=== PATIENT | female | born 1965 | race Caucasian/White ===

== ENCOUNTER → 2016-04-02 | Outpatient (CLI) | payer BC ==
[~2016-04-02] MED LIST: ACET250T2 PO; ACET50CA PO; ASPI81TA85 PO; ATEN50TA2 PO; BENA25CA PO; CYCL10TA3 PO; LEVO100T5 PO; LEVO10VL PO; LEVO75TA3 PO; LEXA1TAB PO; LISI5TAB PO; PANT40TA2 PO
[2016-04-02 13:15] LABS: ALBUMIN 3.3 GM/DL (3.2-5.2); ALKALINE PHOSPHATASE 87 U/L (45-117); ALT/SGPT 34 U/L (12-78); ANION GAP 8 MEQ/L (8-16); AST/SGOT 39 U/L (15-37); BILIRUBIN,TOTAL 0.3 MG/DL (0.2-1.0); BLOOD UREA NITROGEN 16 MG/DL (7-18); CALCIUM LEVEL 8.8 MG/DL (8.5-10.1); CARBON DIOXIDE LEVEL 25 MEQ/L (21-32); CHLORIDE LEVEL 110 MEQ/L (98-107); CHOLESTEROL LEVEL 143 MG/DL (<200); CREATININE FOR GFR 1.09 MG/DL (0.55-1.02); GLOMERULAR FILTRATION RATE 56.8 (>58); GLUCOSE, FASTING 104 MG/DL (70-105); POTASSIUM SERUM 4.2 MEQ/L (3.5-5.1); SODIUM LEVEL 143 MEQ/L (136-145); TRIGLYCERIDES LEVEL 115 MG/DL (<150)
[2016-04-02 13:20] LABS: FERRITIN 7 NG/ML (8-252); FREE T4 0.89 NG/DL (0.76-1.46); PERCENT SATURATION 9.2 % (13.2-37.4); TOTAL IRON BINDING CAPACITY 314 UG/DL (250-450); TOTAL PROTEIN 7.4 GM/DL (6.4-8.2)
[2016-04-02 13:23] LABS: MEAN CORPUSCULAR HGB CONC 31.2 g/dl (32.0-36.5); MEAN CORPUSCULAR VOLUME 83.3 fl (80.0-96.0); RED CELL DISTRIBUTION WIDTH 14.9 % (11.5-14.5); WHITE BLOOD COUNT 7.5 K/mm3 (4.0-10.0)
== END ==
LOC: M WUC 09:13
PROVIDERS: ATTEND Nurse Practitioner Family
DX: E78.5 Hyperlipidemia, unspecified (principal); I10 Essential (primary) hypertension; D53.9 Nutritional anemia, unspecified; E55.9 Vitamin D deficiency, unspecified; E03.9 Hypothyroidism, unspecified

== ENCOUNTER → 2016-06-12 | Outpatient (CLI) | payer BC ==
--- NOTE | 2016-06-14 18:03 | ECGEPIP ---
Stationary ECG Study [facility] Test Date: 2016-06-12 Pat Name: RORO TAVARES Department: Room: - Gender: F Lead Cargo Mover: YAIR : 1965 Requested By: Gen Blanton Order Number: [id number] Reading MD: Junior Chen Measurements Intervals [place] Rate: 83 P: 55 CT: 180 QRS: 9 QRSD: 94 T: 22 QT: 370 QTc: 436 Interpretive Statements SINUS RHYTHM NO PRIOR TRACING IN THE SYSTEM Electronically Signed On 06-14-2016 18:03:03 EDT by Junior Chen
== END ==
LOC: M EKG 12:17
PROVIDERS: ATTEND Orthopaedic Surgery
DX: I10 Essential (primary) hypertension (principal)

== ENCOUNTER → 2016-08-08 | Outpatient (CLI) | payer BC ==
[~2016-08-08] MED LIST changes: +ACET500C4 PO; -ACET50CA PO; +ASPI1TAB PO; +BENA25TA10 PO; +CYCL10TA PO; +IRON65TA PO; +LISI-542 PO
--- NOTE | 2016-08-09 06:55 | REP ---
CT study of the abdomen and pelvis without IV or oral contrast: Renal stone protocol. History: Left-sided flank pain. Comparison study: January 13, 2015. Findings: Preliminary digital forensic manager radiograph shows clips in the right upper quadrant. Bowel gas pattern is unremarkable. The lung bases are clear. Liver and spleen are normal in size, homogeneous in texture. No adrenal lesion is seen on either side. No pancreatic abnormality is noted. There is moderate left-sided hydronephrosis and proximal hydroureter due to the presence of a large proximal ureteral calculus on the left. This measures 14 mm in greatest dimension. There are two smaller calculi in the intrarenal collecting system of the lower pole of the left kidney as well. The largest of these measures 6 mm in size. There is an upper pole intrarenal calculus 5 mm in diameter. On the right, there is no evidence of hydronephrosis but there are four identifiable intrarenal calculi. The largest of the right sided intrarenal calculi measures 10 mm. Normal caliber aorta is seen. A normal appendix is observed. No uterine or ovarian abnormality is seen. No bony destructive lesion is appreciated. Impression: Bilateral intrarenal nephrolithiasis. 14 mm obstructing left proximal ureteral calculus noted at the level of the L3 vertebral body. Moderate left-sided hydronephrosis. Signed by Brennan Gold MD 08/09/2016 07:58 A
== END ==
LOC: M RAD 17:59
PROVIDERS: ATTEND Nurse Practitioner Women's Health
DX: R10.9 Unspecified abdominal pain (principal)

== ENCOUNTER → 2016-08-23 | Outpatient (REF) | payer BC ==
[2016-08-23 11:18] LABS: MICROSCOPIC INDICATED? MAN YES (NO)
[2016-08-23 11:31] LABS: CALCIUM OXALATE CRYSTALS,URINE LARGE AMOUNT /hpf; HYALINE CAST, URINE NONE SEEN /lpf (0-1); RBC, URINE NONE SEEN /hpf (0-3); SQUAMOUS EPITHELIAL CELL URINE SMALL AMOUNT /hpf (SMALL AMT)
[2016-08-23 11:32] LABS: MICROSCOPIC EXAM PERFORMED
[2016-08-23 11:40] LABS: BACTERIA, URINE SMALL AMOUNT
== END ==
LOC: M SMT 09:25
PROVIDERS: ATTEND Nurse Practitioner Women's Health
DX: N13.2 Hydronephrosis with renal and ureteral calculous obstruction (principal); Z01.818 Encounter for other preprocedural examination

== ENCOUNTER → 2016-09-19 | Outpatient (CLI) | payer BC ==
[2016-09-19 17:52] LABS: INR 1.05; MEAN CORPUSCULAR HEMOGLOBIN 25.9 pg (27.0-33.0); MEAN CORPUSCULAR HGB CONC 31.6 g/dl (32.0-36.5); RED CELL DISTRIBUTION WIDTH 16.8 % (11.5-14.5); WHITE BLOOD COUNT 7.1 K/mm3 (4.0-10.0)
[2016-09-19 18:19] LABS: CONTROL LINE HCG INT CTR LINE PRESENT
[2016-09-19 19:34] LABS: ANION GAP 10 MEQ/L (8-16); BLOOD UREA NITROGEN 21 MG/DL (7-18); CALCIUM LEVEL 8.4 MG/DL (8.5-10.1); CARBON DIOXIDE LEVEL 22 MEQ/L (21-32); CHLORIDE LEVEL 111 MEQ/L (98-107); GLOMERULAR FILTRATION RATE 36.5 (>58); GLUCOSE, FASTING 84 MG/DL (70-105); POTASSIUM SERUM 4.3 MEQ/L (3.5-5.1); SODIUM LEVEL 143 MEQ/L (136-145)
== END ==
LOC: M WUC 15:34
PROVIDERS: ATTEND Nurse Practitioner Women's Health
DX: Z01.818 Encounter for other preprocedural examination (principal); N13.2 Hydronephrosis with renal and ureteral calculous obstruction

== ENCOUNTER → 2016-09-20 | Outpatient (REF) | payer BC | LOC: M SMT 16:25 | PROVIDERS: ATTEND Urology | DX: N39.0 Urinary tract infection, site not specified (principal) ==

== ENCOUNTER 2016-09-21 07:42 | Day surgery (SDC) | payer BC ==
[~2016-09-21] VITALS: Ht 170.2 cm; Wt 129.7 kg
[~2016-09-21 07:42] MED LIST changes: -ASPI1TAB PO
[2016-09-21] MEDS ORDERED: LR 1,000 ML IV ONE (08:00)
[2016-09-21] MEDS ORDERED: ceFAZolin SOD 1 GM in D5W MINI-BAG PLUS 50 ML IV ONE (08:00)
[2016-09-21] MEDS ORDERED: CONRAY-60 60% 50ML VIAL (Q9961) As Ordered ONE (08:54)
[2016-09-21] MEDS ORDERED: PROPOFOL 200 MG/20 ML VIAL As Ordered ONE (09:05)
[2016-09-21] MEDS ORDERED: fentaNYL 250 MCG/5 ML INJECTION (J3010) As Ordered ONE (09:05)
[2016-09-21] MEDS ORDERED: LIDOCAINE 2% INJ 100 MG/5 ML SDV (FOR ANES.) As Ordered ONE (09:05)
[2016-09-21] MEDS ORDERED: ROCURONIUM BROMIDE 50 MG/5 ML VIAL/SYRINGE As Ordered ONE (09:05)
[2016-09-21] MEDS ORDERED: MIDAZOLAM INJ 2 MG/2 ML VIAL (J2250) As Ordered ONE (09:06)
[2016-09-21] MEDS ORDERED: SCOPOLAMINE 1.5 MG TRANSDERMAL As Ordered ONE (09:50)
[2016-09-21] MEDS ORDERED: dexameTHASONE 4 MG/ML 1ML VIAL (J1100) As Ordered ONE (10:08)
[2016-09-21] MEDS ORDERED: ONDANSETRON 4MG/2ML VIAL (J2405) As Ordered ONE (10:08)
[2016-09-21] MEDS ORDERED: SUGAMMADEX SODIUM 500 MG/5 ML VIAL (BRIDION) As Ordered ONE (10:17)
[2016-09-21] MEDS ORDERED: LR 1,000 ML IV SCH (11:00)
[2016-09-21] MEDS ORDERED: PERCOCET 5MG/325MG TAB PO PRN ×3 (11:00)
[2016-09-21] MEDS ORDERED: MEPERIDINE INJ 25 MG/ML VIAL (J2175) IV PRN (11:00)
[2016-09-21] MEDS ORDERED: ONDANSETRON 4MG/2ML VIAL (J2405) IV PRN (11:00)
[2016-09-21] MEDS ORDERED: METOCLOPRAMIDE INJ 10MG/2ML VIAL (J2765) IV PRN (11:00)
[2016-09-21] MEDS ORDERED: oxyBUTYnin 5 MG TAB PO PRN (11:00)
[2016-09-21] MEDS ORDERED: fentaNYL 100 MCG/2 ML INJECTION (J3010) IV PRN (11:00)
--- NOTE | 2016-09-21 11:01 | REP ---
C-ARM VIEWS DURING LEFT RETROGRADE PYELOGRAM AND STENT PLACEMENT: Calculus is seen in the left ureter. A wire is passed from the bladder into the left renal pelvis. Contrast is injected showing left hydronephrosis. A left ureteral stent is placed. The proximal end of coiled in the left renal pelvis and the distal end is coiled in the region of the urinary bladder. 15 seconds fluoroscopy time utilized. Signed by Landry Bell MD 09/21/2016 05:07 P
[2016-09-21] MEDS ORDERED: LACTATED RINGER'S 1000 ML IV ONE (12:30)
[2016-09-21 14:05] VITALS: BP 153/83
--- NOTE | 2016-09-22 08:21 | RO ---
DATE OF PROCEDURE: 09/21/2016 PREPROCEDURE DIAGNOSIS: Left kidney and ureteral stones. POSTPROCEDURE DIAGNOSIS: Left kidney and ureteral stones. PROCEDURE: Cystoscopy, left ureteroscopy with laser lithotripsy with basket extraction of stones, left retrograde pyelogram with intraoperative interpretation of images, left ureteral stent placement. SURGEON: Dr. Bill Castillo SOURCING ASSISTANT: None. ANESTHESIA: General. OPERATIVE INDICATIONS: This is a 51-year-old female who was found on recent CAT scan to have an obstructing 1.2 cm left ureteral stone, as well as another 6 mm stone in the left kidney. She was brought to the operating room today for the above listed procedure. DESCRIPTION OF PROCEDURE: The patient was brought to the operating room, where general anesthesia was induced. Prophylactic antibiotics were infused. She was then placed in the dorsal lithotomy position and prepped and draped in the usual sterile fashion. A rigid cystoscope was then inserted into the urethral meatus and advanced into the bladder. Once within the bladder, a wire was advanced up the left collecting system. I then advanced the ureteral access sheath up the left collecting system and the wire was secured to the drape to serve as a safety wire. I then went into the access sheath with a flexible ureteroscope and within the mid ureteral a 1.2 cm stone was seen. Of note, the patient appeared to be starting to form a ureteral stricture at the area where the stone was obstructed. At this point, I utilized a 200 micron laser fiber to fragment the stone in several smaller pieces and removed the majority of the larger stone fragments. I then went into the kidney and found the other stone and that stone was fragmented into smaller pieces as well. All of the larger stone fragments were removed with the basket. Any other stone fragments were broken down into smaller pieces that should be small enough to pass. At this point, a retrograde pyelogram was performed and was notable for severe left hydroureteronephrosis. There was no extravasation. I then withdrew the ureteral access sheath along the ureteroscope and no large stone fragments were seen. Only very tiny stone fragments were seen. At this point, the previously placed wire was used to advance a #7-Tamazight x 22-32 cm JJ ureteral stent up into the left collecting system. The wire was then removed, and there were adequate curls of the stent in the left renal pelvis and in the bladder. The bladder was then emptied of all fluid, and this marked the conclusion of the procedure. The patient was then taken out of the dorsal lithotomy position, awakened from anesthesia, and transported to the recovery room in stable condition. ESTIMATED BLOOD LOSS: 0 mL. COMPLICATIONS: None. SPECIMENS: Kidney stone fragments. PLAN: The patient will followup in the clinic for a postoperative visit. Of note, she has stones in the right kidney that will also warrant treatment. They can likely be treated with extracorporeal shock wave lithotripsy (ESWL). If the patient prefers, we can remove her stent at that time and treat her right sided stones at that time. PARTH
[2016-10-09] MEDS ORDERED: ASPI1TAB PO (15:26)
== END 2016-09-21 14:06 | disposition home or self-care (01) ==
LOC: M SDC 07:42
PROVIDERS: ATTEND Urology
DX: N13.2 Hydronephrosis with renal and ureteral calculous obstruction (principal); E03.9 Hypothyroidism, unspecified; I10 Essential (primary) hypertension; E55.9 Vitamin D deficiency, unspecified; K21.9 Gastro-esophageal reflux disease without esophagitis; D64.9 Anemia, unspecified; M51.36 Other intervertebral disc degeneration, lumbar region; M50.20 Other cervical disc displacement, unspecified cervical region; G93.2 Benign intracranial hypertension; K44.9 Diaphragmatic hernia without obstruction or gangrene; R13.10 Dysphagia, unspecified; Z79.899 Other long term (current) drug therapy; Z79.82 Long term (current) use of aspirin; Z88.5 Allergy status to narcotic agent; Z88.1 Allergy status to other antibiotic agents; Z88.8 Allergy status to other drugs, medicaments and biological substances
CPT/HCPCS: 52356; 74420; 82360; 88300; C1769; C1894; C2617; J0690; J1100; J2250; J2405; J2765; J3010; Q9961

== ENCOUNTER → 2016-09-27 | Outpatient (REF) | payer BC ==
[~2016-09-27] MED LIST changes: +ASPI1TAB PO
== END ==
LOC: M SMT 17:43
PROVIDERS: ATTEND Nurse Practitioner Women's Health
DX: R30.0 Dysuria (principal)

== ENCOUNTER → 2016-10-10 | Outpatient (CLI) | payer BC ==
[2016-10-10 16:51] LABS: CALCIUM LEVEL 8.6 MG/DL (8.5-10.1); CREATININE FOR GFR 1.59 MG/DL (0.55-1.02); GLOMERULAR FILTRATION RATE 36.7 (>58); POTASSIUM SERUM 4.1 MEQ/L (3.5-5.1)
[2016-10-10 17:04] LABS: MEAN CORPUSCULAR HEMOGLOBIN 25.9 pg (27.0-33.0); MEAN CORPUSCULAR HGB CONC 31.5 g/dl (32.0-36.5); MEAN CORPUSCULAR VOLUME 82.1 fl (80.0-96.0); RED CELL DISTRIBUTION WIDTH 16.3 % (11.5-14.5); WHITE BLOOD COUNT 7.6 K/mm3 (4.0-10.0)
== END ==
LOC: M WUC 13:03
PROVIDERS: ATTEND Urology
DX: Z01.818 Encounter for other preprocedural examination (principal); N20.0 Calculus of kidney; N39.0 Urinary tract infection, site not specified

== ENCOUNTER 2016-10-11 06:33 | Day surgery (SDC) | payer BC ==
[~2016-10-11] VITALS: Ht 170.2 cm; Wt 128.4 kg
[2016-10-11] MEDS ORDERED: PROPOFOL 200 MG/20 ML VIAL As Ordered ONE ×2 (07:18→08:14)
[2016-10-11] MEDS ORDERED: MIDAZOLAM INJ 2 MG/2 ML VIAL (J2250) As Ordered ONE (07:18)
[2016-10-11] MEDS ORDERED: LIDOCAINE 2% INJ 100 MG/5 ML SDV (FOR ANES.) As Ordered ONE (07:18)
[2016-10-11] MEDS ORDERED: fentaNYL 100 MCG/2 ML INJECTION (J3010) As Ordered ONE (07:19)
--- NOTE | 2016-10-11 07:19 | REP ---
Clinical: Nephrolithiasis. Comparison: CT dated 08/08/2016. Technique: Single supine view of the abdomen and pelvis. Findings: A left ureteral stent is in satisfactory position. Bilateral intrarenal calculi are identified measuring up to approximately 10 mm in the right kidney and multiple smaller calcifications in the left kidney outlining the lower pole collecting system. No obvious ureteral calcifications are appreciated. The bowel gas pattern is nonspecific. No organomegaly. Skeletal structures demonstrate age-related changes. Impression: Left ureteral stent in satisfactory position. Bilateral intrarenal calculi identified. Signed by Davis Asencio MD 10/11/2016 07:11 A
[2016-10-11 07:32] LABS: CONTROL LINE UCG INT CTR LINE PRESENT
[2016-10-11] MEDS ORDERED: METOCLOPRAMIDE INJ 10MG/2ML VIAL (J2765) As Ordered ONE (07:44)
[2016-10-11] MEDS ORDERED: KETAMINE HCL 200 MG/20 ML VIAL As Ordered ONE (07:44)
[2016-10-11] MEDS ORDERED: ONDANSETRON 4MG/2ML VIAL (J2405) As Ordered ONE (08:17)
[2016-10-11] MEDS ORDERED: PERCOCET 5MG/325MG TAB PO PRN ×2 (09:15)
[2016-10-11 09:45] VITALS: BP 101/57
--- NOTE | 2016-10-11 10:30 | RO ---
DATE OF PROCEDURE: 10/11/2016 PREPROCEDURE DIAGNOSIS: Kidney stones. POSTPROCEDURE DIAGNOSIS: Kidney stones. PROCEDURE: Right extracorporeal shockwave lithotripsy, cystoscopy with left ureteral stent removal. SURGEON: Dr. Bill Castillo GREY TENDER: None ANESTHESIA: Monitored anesthesia care (MAC). OPERATIVE INDICATIONS: This is a 51-year-old female with bilateral nephrolithiasis and recently underwent a left ureteroscopy with laser lithotripsy and left ureteral stent placement. She also has a 9 mm right kidney stone. She was brought to the operating room today for treatment of her right kidney stone as well as removal of her left ureteral stent. DESCRIPTION OF PROCEDURE: The patient was brought to the operating room and MAC anesthesia was administered. Prophylactic antibiotics were infused. She was then placed in the supine position and then prepped and draped in the usual sterile fashion. At this point, cystoscopy was performed and the left ureteral stent was removed. The patient was then positioned for a right sided extracorporeal shockwave lithotripsy. Fluoroscopy was utilized to monitor the stone position and fragmentation throughout the procedure. Shockwaves were delivered ungated. There were no arrhythmias. The stone did appear to fragment well. After 2500 shocks, the procedure was concluded. The patient was then awakened from anesthesia and transported to the recovery room in stable condition. Estimated blood loss 0 mL. Complications: None. Specimens: None. Plan: The patient will followup in the clinic in a few weeks with imaging prior to check for residual stone burden. PARTH
== END 2016-10-11 10:00 | disposition home or self-care (01) ==
LOC: M SDC 06:33 → M RAD 06:33 → M SDC 10:00
PROVIDERS: ATTEND Urology
DX: N20.0 Calculus of kidney (principal); I10 Essential (primary) hypertension; R13.10 Dysphagia, unspecified; K44.9 Diaphragmatic hernia without obstruction or gangrene; M51.26 Other intervertebral disc displacement, lumbar region; M50.20 Other cervical disc displacement, unspecified cervical region; F41.9 Anxiety disorder, unspecified; E55.9 Vitamin D deficiency, unspecified; K21.9 Gastro-esophageal reflux disease without esophagitis; G93.2 Benign intracranial hypertension; E03.9 Hypothyroidism, unspecified; D64.9 Anemia, unspecified; R06.83 Snoring; R51 Headache; Z79.899 Other long term (current) drug therapy; Z79.82 Long term (current) use of aspirin; Z88.8 Allergy status to other drugs, medicaments and biological substances; Z88.5 Allergy status to narcotic agent; Z88.1 Allergy status to other antibiotic agents
CPT/HCPCS: 50590; 52332; 74000; 84703; J2250; J2405; J2765; J3010

== ENCOUNTER → 2017-04-07 | Outpatient (CLI) | payer BC | LOC: M WUC 16:32 | DX: N20.0 Calculus of kidney (principal); M51.9 Unspecified thoracic, thoracolumbar and lumbosacral intervertebral disc disorder | CPT/HCPCS: 72110 ==

== ENCOUNTER → 2017-04-22 | Outpatient (CLI) | payer BC ==
[2017-04-22 12:42] LABS: HEMATOCRIT 37.6 % (36.0-47.0); HEMOGLOBIN 11.4 g/dl (12.0-16.0); MEAN CORPUSCULAR HEMOGLOBIN 24.9 pg (27.0-33.0); MEAN CORPUSCULAR HGB CONC 30.3 g/dl (32.0-36.5); MEAN CORPUSCULAR VOLUME 82.1 fl (80.0-96.0); PLATELET COUNT, AUTOMATED 239 10^3/uL (150-450); RED BLOOD COUNT 4.58 10^6/uL (4.00-5.40); RED CELL DISTRIBUTION WIDTH 16.7 % (11.5-14.5); WHITE BLOOD COUNT 11.1 10^3/uL (4.0-10.0)
[2017-04-22 13:05] LABS: ALBUMIN 3.6 GM/DL (3.2-5.2); ALBUMIN/GLOBULIN RATIO 0.88 (1.00-1.93); ALKALINE PHOSPHATASE 82 U/L (45-117); ALT/SGPT 38 U/L (12-78); ANION GAP 7 MEQ/L (8-16); AST/SGOT 51 U/L (7-37); BILIRUBIN,TOTAL 0.2 MG/DL (0.2-1.0); BLOOD UREA NITROGEN 16 MG/DL (7-18); CALCIUM LEVEL 8.5 MG/DL (8.5-10.1); CARBON DIOXIDE LEVEL 21 MEQ/L (21-32); CHLORIDE LEVEL 111 MEQ/L (98-107); CHOLESTEROL LEVEL 122 MG/DL (<200); CHOLESTEROL RISK RATIO 3.935 (<5); CPK CREATINE PHOSPHOKINASE 93 U/L (26-192); CREATININE FOR GFR 1.36 MG/DL (0.55-1.30); FERRITIN 34 NG/ML (8-252); FREE T4 1.03 NG/DL (0.76-1.46); GLOMERULAR FILTRATION RATE 43.8 (>51); GLUCOSE, FASTING 102 MG/DL (70-100); HDL CHOLESTEROL 31 MG/DL (>40); IMMUNOGLOBULIN G 1990 MG/DL (681-1648); IMMUNOGLOBULIN M 49.1 MG/DL (40-230); IRON (FE) 36 UG/DL (50-170); LDL CHOLESTEROL 72.4 MG/DL (<100); NON-HDL-C 91 MG/DL; PERCENT SATURATION 11.5 % (13.2-45.0); POTASSIUM SERUM 4.2 MEQ/L (3.5-5.1); RHEUMATOID FACTOR QUANT 24.6 IU/ML (0-15.0); SODIUM LEVEL 139 MEQ/L (136-145); TOTAL IRON BINDING CAPACITY 314 UG/DL (250-450); TOTAL PROTEIN 7.7 GM/DL (6.4-8.2); TRIGLYCERIDES LEVEL 93 MG/DL (<150)
[2017-04-24 00:11] LABS: Lyme Disease IgG/IgM Antibodie <0.91 ISR (0.00-0.90); Lyme Disease IgM Ab Quantitati <0.80 index (0.00-0.79)
== END ==
LOC: M WUC 09:54
DX: E03.9 Hypothyroidism, unspecified (principal); I10 Essential (primary) hypertension; M79.1 Myalgia; E78.00 Pure hypercholesterolemia, unspecified
CPT/HCPCS: 82550

== ENCOUNTER → 2017-06-14 | Outpatient (CLI) | payer BC | LOC: M PLARAD 08:15 | DX: M51.26 Other intervertebral disc displacement, lumbar region (principal); M51.36 Other intervertebral disc degeneration, lumbar region | CPT/HCPCS: 72148 ==

== ENCOUNTER → 2017-08-02 | Outpatient (CLI) | payer BC ==
[2017-08-02 13:09] LABS: HEMATOCRIT 40.8 % (36.0-47.0); HEMOGLOBIN 12.6 g/dl (12.0-15.5); MEAN CORPUSCULAR HEMOGLOBIN 26.4 pg (27.0-33.0); MEAN CORPUSCULAR HGB CONC 30.9 g/dl (32.0-36.5); MEAN CORPUSCULAR VOLUME 85.5 fl (80.0-96.0); PLATELET COUNT, AUTOMATED 192 10^3/uL (150-450); RED BLOOD COUNT 4.77 10^6/uL (4.00-5.40); RED CELL DISTRIBUTION WIDTH 16.6 % (11.5-14.5); WHITE BLOOD COUNT 9.7 10^3/uL (4.0-10.0)
[2017-08-02 13:10] LABS: TOTAL 25(OH) VITAMIN D 24.6 NG/ML (30.0-100.0)
[2017-08-02 13:21] LABS: CHOLESTEROL LEVEL 144 MG/DL (<200); CHOLESTEROL RISK RATIO 3.272 (<5); CPK CREATINE PHOSPHOKINASE 127 U/L (26-192); FERRITIN 27 NG/ML (8-252); FREE T4 0.65 NG/DL (0.76-1.46); HDL CHOLESTEROL 44 MG/DL (>40); IRON (FE) 63 UG/DL (50-170); NON-HDL-C 100 MG/DL; PERCENT SATURATION 21.3 % (13.2-45.0); TOTAL IRON BINDING CAPACITY 296 UG/DL (250-450); TRIGLYCERIDES LEVEL 145 MG/DL (<150)
== END ==
LOC: M WUC 08:43
DX: E55.9 Vitamin D deficiency, unspecified (principal); E03.9 Hypothyroidism, unspecified; I10 Essential (primary) hypertension
CPT/HCPCS: 82550

== ENCOUNTER → 2017-08-19 | Outpatient (CLI) | payer BC ==
[2017-08-22 00:09] LABS: Lyme Disease IgG/IgM Antibodie <0.91 ISR (0.00-0.90); Lyme Disease IgM Ab Quantitati <0.80 index (0.00-0.79)
== END ==
LOC: M WUC 13:54
DX: Z11.2 Encounter for screening for other bacterial diseases (principal); W57.XXXA Bitten or stung by nonvenomous insect and other nonvenomous arthropods, initial encounter
CPT/HCPCS: 36415

== ENCOUNTER → 2018-01-09 | Outpatient (CLI) | payer BC | LOC: M WUC 18:01 | DX: M79.644 Pain in right finger(s) (principal) | CPT/HCPCS: 73140 ==

== ENCOUNTER 2018-02-21 16:31 | Emergency (ER) | payer OTHER, BC ==
[~2018-02-21] VITALS: Ht 170.2 cm; Wt 131.8 kg
[~2018-02-21 16:31] MED LIST changes: +PANT40TA3 PO
[2018-02-21] MEDS ORDERED: IBUPROFEN 600 MG TAB PO ONE (17:45)
[2018-02-21] MEDS ORDERED: CYCLOBENZAPRINE 10 MG TAB PO ONE (17:45)
--- NOTE | 2018-02-21 18:07 | REP ---
CT thoracic spine without contrast: History: Trauma. Findings: Thoracic vertebral body heights are preserved. Alignment is normal. No fracture or collapse is seen. Pedicles and posterior elements are intact. There are mild degenerative spondylosis changes in the mid and lower thoracic disc levels. No bony destructive lesion is seen. No posterior rib fracture is observed. Impression: Mild degenerative spondylosis changes. Otherwise normal thoracic spine CT study. Electronically Signed by Brennan Gold MD 02/21/2018 05:59 P
[2018-02-21 18:23] VITALS: BP 132/78
--- NOTE | 2018-02-21 21:01 | REP ---
CT lumbar spine without contrast: History: Trauma. CT findings: Scan quality is inhibited slightly by patient body habitus. Lumbar vertebral body heights are preserved. No fracture or collapse is evident. There are advanced degenerative disc changes L5-S1. Diffuse disc bulging is noted L5-S1. Moderate diffuse disc bulging is visible on L4-5 and there is some significant central canal stenosis suspected L4-5 due to this. This is not traumatic. Bilateral intrarenal nephrolithiasis is noted. The largest of these calculi as in the lower pole on the right measuring 4 mm. Impression: No traumatic bony abnormality. Degenerative disc disease at the L5-S1 and L4-5 with disc space narrowing and central canal stenosis at L4-5. Bilateral intrarenal nephrolithiasis is seen. Electronically Signed by Brennan Gold MD 02/22/2018 08:19 A
== END 2018-02-21 18:23 | disposition home or self-care (01) ==
LOC: M ED 16:31
DX: S39.012A Strain of muscle, fascia and tendon of lower back, initial encounter (principal); V43.62XA Car passenger injured in collision with other type car in traffic accident, initial encounter; Y92.410 Unspecified street and highway as the place of occurrence of the external cause

== ENCOUNTER → 2018-04-19 | Outpatient (REF) | payer OTHER, BC | LOC: M LAB REF 11:39 | PROVIDERS: ATTEND Physician Assistant Medical | DX: J02.9 Acute pharyngitis, unspecified (principal); N39.0 Urinary tract infection, site not specified ==

== ENCOUNTER → 2018-05-12 | Outpatient (REF) | payer BC ==
[2018-05-12 13:33] LABS: APPEARANCE, URINE CLOUDY (CLEAR); BACTERIA, URINE AUTO NEGATIVE (NEGATIVE); BILIRUBIN, URINE AUTO NEGATIVE (NEGATIVE); BLOOD, URINE BLOOD 1+ (NEGATIVE); COLOR, URINE YELLOW (YELLOW); GLUCOSE, URINE (UA) AUTO NEGATIVE (NEGATIVE); KETONE, URINE AUTO NEGATIVE (NEGATIVE); LEUKOCYTE ESTERASE, URINE AUTO 3+ (NEGATIVE); NITRITE, URINE AUTO NEGATIVE (NEGATIVE); PROTEIN, URINE AUTO 1+ mg/dL (NEGATIVE); RBC, URINE AUTO 9 /HPF (0-3); SPECIFIC GRAVITY URINE AUTO 1.011 (1.002-1.035); SQUAMOUS EPITHELIAL CELL UR AU 0 /HPF (0-6); UROBILINOGEN, URINE AUTO 0.2 mg/dL (0.0-2.0); WBC, URINE AUTO TNTC /HPF (0-3)
== END ==
LOC: M SMT 12:43
PROVIDERS: ATTEND Nurse Practitioner Women's Health
DX: R10.9 Unspecified abdominal pain (principal)

== ENCOUNTER → 2018-05-23 | Outpatient (CLI) | payer BC ==
[~2018-05-23] MED LIST changes: -ASPI1TAB PO; +ASPI81TA26 PO; +LEVO100I PO; -LEVO10VL PO
--- NOTE | 2018-05-23 13:37 | REP ---
CT of the abdomen pelvis without IV or bowel contrast: Studies performed for right flank pain and history of renal calculi. Comparison is the CT of the abdomen pelvis dated 08/08/2016. There are multiple nonobstructive renal calculi bilaterally. This is similar to the comparison study. There is no hydronephrosis. However, there is a calcification posterolateral to the bladder on the right and a calcification posterolateral to the bladder on the left in the proximal locations of the distal ureters, not present previously, compatible with new distal bilateral ureteral calculi. There are nonobstructive. In addition, there is a calcification in the approximate location of the distal left ureter on image 127 in the upper pelvis. This also appears to be nonobstructive. No other suspected ureteral calculi are identified. There is no perinephric stranding. There appears to be mild diffuse left renal cortical atrophy as a change from the comparison study. There is no right renal cortical atrophy. Consider CT urogram with IV contrast for further evaluation of the ureters. The visualized lung khan are unremarkable. The unenhanced liver is unremarkable. There are surgical clips in the gallbladder fossa. The pancreas, spleen, adrenals, abdominal aorta, bowel and mesentery are unremarkable. Pelvis: There are calculi in the proximal appendix has a interval change. The mid and distal appendix are distended with air measuring up to 9.6 mm. There is no periappendiceal inflammation or abscess. There is no ascites or adenopathy. The uterus and adnexa are unremarkable. There are suspected ureteral calculi as previously discussed. Impression: There are suspected ureteral calculi bilaterally as described. There is no hydronephrosis, suggesting these calculi are nonobstructive. Consider CT urogram with IV contrast to better evaluate. There are multiple nonobstructive bilateral renal calculi. Mild left renal cortical atrophy as a change from the prior study. Calcifications at the base of the appendix. The mid and distal appendix are mildly distended and air-filled. There is no periappendiceal inflammation or abscess. Electronically Signed by Landry Jordan MD 05/23/2018 01:28 P
== END ==
LOC: M RAD 11:25
PROVIDERS: ATTEND Nurse Practitioner Women's Health
DX: R10.9 Unspecified abdominal pain (principal)

== ENCOUNTER → 2018-05-30 | Outpatient (REF) | payer BC ==
[~2018-05-30] MED LIST changes: +IBUP-1022 PO
== END ==
LOC: M SMT 16:45
PROVIDERS: ATTEND Nurse Practitioner Women's Health
DX: N39.0 Urinary tract infection, site not specified (principal)

== ENCOUNTER 2018-05-31 14:08 | Emergency (ER) | payer BC ==
[~2018-05-31] VITALS: Ht 170.2 cm; Wt 131.8 kg
[2018-05-31 14:08] VITALS: BP 159/99
[~2018-05-31 14:08] MED LIST changes: -IBUP-1022 PO
[2018-05-31] MEDS ORDERED: TETRACAINE 0.5% OPHTH SOLN 4ML As Ordered ONE (14:28)
[2018-05-31] MEDS ORDERED: FLUORESCEIN OPHTH 1 MG STRIP As Ordered ONE (14:28)
[2018-05-31] MEDS ORDERED: FLUORESCEIN OPHTH 1 MG STRIP XX ONE (14:30)
[2018-05-31] MEDS ORDERED: TETRACAINE 0.5% OPHTH SOLN 4ML XX ONE (14:30)
[2018-05-31] MEDS ORDERED: IBUP-1022 PO (14:40)
[2018-05-31] MEDS ORDERED: IBUPROFEN 600 MG TAB PO ONE (14:45)
== END 2018-05-31 15:07 | disposition home or self-care (01) ==
LOC: M ED 14:08
DX: T26.12XA Burn of cornea and conjunctival sac, left eye, initial encounter (principal); X19.XXXA Contact with other heat and hot substances, initial encounter; Y92.9 Unspecified place or not applicable; Z88.5 Allergy status to narcotic agent; Z88.8 Allergy status to other drugs, medicaments and biological substances; Z79.82 Long term (current) use of aspirin; Z79.899 Other long term (current) drug therapy

== ENCOUNTER → 2018-06-16 | Outpatient (REF) | payer BC ==
[~2018-06-16] MED LIST changes: +IBUP-1022 PO
== END ==
LOC: M SMT 13:28
PROVIDERS: ATTEND Nurse Practitioner Women's Health
DX: N39.0 Urinary tract infection, site not specified (principal)

== ENCOUNTER → 2018-07-04 | Outpatient (CLI) | payer BC ==
[~2018-07-04] MED LIST changes: +LISI10TA4 PO; +MAGN250T7 PO; +SULF1TAB30 PO; +VITATAB73 PO
[2018-07-04 21:04] LABS: BLOOD UREA NITROGEN 20 MG/DL (7-18); CALCIUM LEVEL 8.5 MG/DL (8.5-10.1); CARBON DIOXIDE LEVEL 20 MEQ/L (21-32); CHLORIDE LEVEL 114 MEQ/L (98-107); GLOMERULAR FILTRATION RATE 42.2 (>51); GLUCOSE, FASTING 112 MG/DL (70-100); HEMATOCRIT 38.3 % (36.0-47.0); HEMOGLOBIN 11.8 g/dl (12.0-15.5); INR 0.98; MEAN CORPUSCULAR HEMOGLOBIN 27.1 pg (27.0-33.0); MEAN CORPUSCULAR HGB CONC 30.8 g/dl (32.0-36.5); MEAN CORPUSCULAR VOLUME 87.8 fl (80.0-96.0); PLATELET COUNT, AUTOMATED 260 10^3/uL (150-450); POTASSIUM SERUM 4.5 MEQ/L (3.5-5.1); PROTHROMBIN TIME 13.1 SECONDS (12.1-14.4); RED BLOOD COUNT 4.36 10^6/uL (4.00-5.40); SODIUM LEVEL 141 MEQ/L (136-145); WHITE BLOOD COUNT 8.7 10^3/uL (4.0-10.0)
[2018-07-04 21:05] LABS: PARTIAL THROMBOPLASTIN TIME 32.1 SECONDS (25.4-37.6)
[2018-07-04 21:09] LABS: HCG, SERUM QUALITATIVE NEGATIVE (NEGATIVE)
== END ==
LOC: M WUC 16:33
PROVIDERS: ATTEND Nurse Practitioner Women's Health
DX: Z01.818 Encounter for other preprocedural examination (principal); N20.0 Calculus of kidney; N39.0 Urinary tract infection, site not specified

== ENCOUNTER → 2018-07-09 | Outpatient (REF) | payer BC ==
[2018-07-09 14:41] LABS: APPEARANCE, URINE HAZY (CLEAR); BACTERIA, URINE AUTO NEGATIVE (NEGATIVE); BILIRUBIN, URINE AUTO NEGATIVE (NEGATIVE); BLOOD, URINE BLOOD NEGATIVE (NEGATIVE); COLOR, URINE YELLOW (YELLOW); GLUCOSE, URINE (UA) AUTO NEGATIVE (NEGATIVE); KETONE, URINE AUTO NEGATIVE (NEGATIVE); LEUKOCYTE ESTERASE, URINE AUTO TRACE (NEGATIVE); NITRITE, URINE AUTO NEGATIVE (NEGATIVE); PROTEIN, URINE AUTO NEGATIVE (NEGATIVE); RBC, URINE AUTO 2 /HPF (0-3); SPECIFIC GRAVITY URINE AUTO 1.013 (1.002-1.035); SQUAMOUS EPITHELIAL CELL UR AU 1 /HPF (0-6); UROBILINOGEN, URINE AUTO 0.2 mg/dL (0.0-2.0); WBC, URINE AUTO 10 /HPF (0-3)
== END ==
LOC: M SMT 13:32
PROVIDERS: ATTEND Urology
DX: N39.0 Urinary tract infection, site not specified (principal)

== ENCOUNTER 2018-07-16 09:52 | Day surgery (SDC) | payer BC ==
[~2018-07-16] VITALS: Ht 170.2 cm; Wt 135.6 kg
[~2018-07-16 09:52] MED LIST changes: +LR 1,000 ML IV ONE; +ceFAZolin SOD 1 GM in D5W MINI-BAG PLUS 50 ML IV ONE
[2018-07-16] MEDS ORDERED: LIDOCAINE 2% INJ 100 MG/5 ML SDV (FOR ANES.) As Ordered ONE (10:50)
[2018-07-16] MEDS ORDERED: PROPOFOL 200 MG/20 ML VIAL As Ordered ONE (10:50)
[2018-07-16] MEDS ORDERED: MIDAZOLAM INJ 2 MG/2 ML VIAL (J2250) As Ordered ONE (10:51)
[2018-07-16] MEDS ORDERED: fentaNYL 100 MCG/2 ML INJECTION (J3010) As Ordered ONE (10:51)
[2018-07-16] MEDS ORDERED: SCOPOLAMINE 1MG TRANSDERMAL PATCH As Ordered ONE (11:38)
[2018-07-16] MEDS ORDERED: SCOPOLAMINE 1MG TRANSDERMAL PATCH TOP ONE (11:45)
[2018-07-16] MEDS ORDERED: CONRAY-60 60% 50ML VIAL (Q9961) As Ordered ONE (12:17)
[2018-07-16] MEDS ORDERED: ROCURONIUM BROMIDE 50 MG/5 ML VIAL As Ordered ONE (13:17)
[2018-07-16] MEDS ORDERED: ONDANSETRON 4MG/2ML VIAL (J2405) As Ordered ONE (13:26)
[2018-07-16] MEDS ORDERED: diphenhydrAMINE INJ 50MG/ML VIAL (J1200) As Ordered ONE (13:26)
[2018-07-16] MEDS ORDERED: dexameTHASONE 4 MG/ML 1ML VIAL (J1100) As Ordered ONE (13:26)
[2018-07-16] MEDS ORDERED: SUGAMMADEX SODIUM 500 MG/5 ML VIAL (BRIDION) As Ordered ONE (13:27)
[2018-07-16] MEDS ORDERED: METOCLOPRAMIDE INJ 10MG/2ML VIAL (J2765) As Ordered ONE (13:27)
[2018-07-16] MEDS ORDERED: KETOROLAC 60 MG/2 ML VIAL (J1885) As Ordered ONE (13:27)
--- NOTE | 2018-07-16 14:32 | REP ---
Retrograde pyelogram History: Stent placement Four portable radiographs were obtained with a C-arm. A small amount of contrast material is present in the renal collecting systems. The patient is status post bilateral ureteral stent placement. Fluoroscopic time 38 seconds. Impression: Retrograde pyelogram as described above. Electronically Signed by Navin Andre MD 07/16/2018 02:23 P
[2018-07-16] MEDS ORDERED: fentaNYL 100 MCG/2 ML INJECTION (J3010) IV PRN (15:00)
[2018-07-16] MEDS ORDERED: oxyCODONE 5MG TAB PO PRN (15:00)
[2018-07-16] MEDS ORDERED: METOCLOPRAMIDE INJ 10MG/2ML VIAL (J2765) IV PRN (15:00)
[2018-07-16] MEDS ORDERED: traMADol 50 MG TAB PO PRN (15:00)
[2018-07-16] MEDS ORDERED: LR 1,000 ML IV SCH (15:00)
[2018-07-16] MEDS: PROMETHAZINE INJ 25 MG/ML VIAL (J2550) IV PRN ×2 (15:02→15:13)
[2018-07-16 16:37] VITALS: BP 132/91
--- NOTE | 2018-07-16 17:02 | RO ---
DATE OF PROCEDURE: 07/16/2018 PREOPERATIVE DIAGNOSIS: Kidney stones. POSTOPERATIVE DIAGNOSIS: Kidney stones, left ureteral masses. PROCEDURE: Cystoscopy, bilateral ureteroscopy with basket extraction of stones and left ureteral biopsies, bilateral retrograde pyelogram with intraoperative interpretation of images, bilateral ureteral stent placement. SURGEON: Dr. Bill Castillo. RN CLINICAL REVIEW: None. ANESTHESIA: General. OPERATIVE INDICATIONS: This is a 53-year-old female who on recent CAT scan was found to have bilateral kidney stones as well as ureteral stones. She was brought to the operating room today for the above listed procedures. DESCRIPTION OF PROCEDURE: Patient was brought to the operating room where general anesthesia was induced. Prophylactic antibiotics were infused. She was then placed in the dorsal lithotomy position and prepped and draped in the usual sterile fashion. Rigid cystoscope was inserted into the urethral meatus and advanced to the bladder. The guidewire was advanced up the right collecting system. I then went up the right collecting system with a short semi-rigid ureteroscope and within the distal ureter approximately 5-6 mm stone was seen. The stone was removed with the basket. I then examined the more proximal ureter with the ureteroscope and no additional stones were seen. I then removed the short semi-rigid ureteroscope and advanced the ureteral access sheath up the right collecting system. I went up the access sheath with a flexible ureteroscope and examined the kidney thoroughly. There were several stones throughout the kidney measuring up to 5 mm in size. All of these stones were removed in a basket. Once I was satisfied all the stones had been removed a retrograde pyelogram was performed and it was notable for moderate right hydronephrosis and no extravasation. I then withdrew the flexible ureteroscope along with the access sheath and no stones were seen in the proximal or mid ureter. I then utilized the wire to advance the 6-Mongolian x 22-32 cm JJ ureteral stent up to the right collecting system. The wire was removed and there are adequate coils of the stent in the right renal pelvis and in the bladder. I then advanced the wire up the left collecting system and then went up with the short semi-rigid ureteroscope. No stones were seen in the left mid to distal ureter, indicating the left ureteral stones had passed. I then advanced a ureteral access sheath over the wire and went up the access sheath with a flexible ureteroscope. Of note in the proximal ureter the patient had several polypoid looking lesions. Then biopsies of the these were obtained and sent for biopsy of left ureteral masses. Once that was done I then examined the left kidney thoroughly and there were several stones seen throughout the left kidney. All of the stones were grasped with a basket and withdrawn. The larger stones measured up to about 5 mm in size. Once satisfied that all the stones were removed a retrograde pyelogram was performed notable for moderate left hydronephrosis and no extravasation. I then withdrew the ureteroscope along with the access sheath and no additional stones were seen within the ureter. Of note no additional lesions were seen other than the ones in the proximal ureter. At this point I utilized the wire to advance a 6-Mongolian x 22-32 cm JJ ureteral stent up to the left collecting system and then the wire was removed. There were adequate coils of the stent in the left renal pelvis and the bladder. The bladder was then emptied of all fluids and this marked the conclusion of the procedure. The patient was then taken out of dorsal lithotomy position, awakened from anesthesia and transferred to the recovery room in stable condition. ESTIMATED BLOOD LOSS: 5 mL. COMPLICATIONS: None. SPECIMENS: Kidney stone fragments, biopsy of the left ureteral masses. PLAN: The patient will followup in the clinic in a week or two for stent removal. We will also discuss the results of the pathology of the left ureteral biopsies. PARTH
== END 2018-07-16 16:48 | disposition home or self-care (01) ==
LOC: M SDC 09:52
PROVIDERS: ATTEND Urology
DX: N20.0 Calculus of kidney (principal); I10 Essential (primary) hypertension; E03.9 Hypothyroidism, unspecified; K44.9 Diaphragmatic hernia without obstruction or gangrene; K21.9 Gastro-esophageal reflux disease without esophagitis; Z88.8 Allergy status to other drugs, medicaments and biological substances; Z79.899 Other long term (current) drug therapy; D64.9 Anemia, unspecified
CPT/HCPCS: 52332; 52352; 74420; 82360; 88300; 88305; C1769; C1894; C2625; J0690; J1100; J1200; J1885; J2250; J2405; J2765; J3010; Q9961

== ENCOUNTER → 2019-01-20 | Outpatient (CLI) | payer BC ==
[~2019-01-20] MED LIST changes: -LR 1,000 ML IV ONE; -ceFAZolin SOD 1 GM in D5W MINI-BAG PLUS 50 ML IV ONE
--- NOTE | 2019-01-20 12:26 | REPPI ---
KUB: Two views. HISTORY: Kidney stone. Comparison CT study May 23, 2018. FINDINGS: There are surgical clips in right upper quadrant of the abdomen. Bowel gas pattern is normal. There are two faint calcific opacities projecting over the lower pole left kidney consistent with intrarenal nephrolithiasis. No right-sided upper tract calculus is appreciated. No lower tract calculus is seen. IMPRESSION: Two calcific densities projecting at the lower pole of the left kidney 3-4 mm in greatest diameter. Electronically Signed by Brennan Gold MD 01/20/2019 05:17 P
== END ==
LOC: M PLAIMG 08:41
PROVIDERS: ATTEND Nurse Practitioner Women's Health
DX: N20.0 Calculus of kidney (principal)

== ENCOUNTER → 2020-02-08 | Outpatient (REF) | payer BC ==
[~2020-02-08] MED LIST changes: +CYCL-707 PO; -CYCL10TA PO; +PANT40TA29 PO; -PANT40TA3 PO
[2020-02-08 17:49] LABS: APPEARANCE, URINE HAZY (CLEAR); BACTERIA, URINE AUTO 1+ (NEGATIVE); BILIRUBIN, URINE AUTO NEGATIVE (NEGATIVE); BLOOD, URINE BLOOD 2+ (NEGATIVE); COLOR, URINE YELLOW (YELLOW); GLUCOSE, URINE (UA) AUTO NEGATIVE (NEGATIVE); KETONE, URINE AUTO NEGATIVE (NEGATIVE); LEUKOCYTE ESTERASE, URINE AUTO 2+ (NEGATIVE); MUCUS, URINE SMALL (NEGATIVE); NITRITE, URINE AUTO NEGATIVE (NEGATIVE); PROTEIN, URINE AUTO 1+ mg/dL (NEGATIVE); RBC, URINE AUTO 2 /HPF (0-3); SQUAMOUS EPITHELIAL CELL UR AU 5 /HPF (0-6); WBC, URINE AUTO 44 /HPF (0-3)
== END ==
LOC: M SMT 16:45
PROVIDERS: ATTEND Nurse Practitioner Women's Health
DX: Z87.442 Personal history of urinary calculi (principal)

== ENCOUNTER → 2020-02-16 | Outpatient (CLI) | payer BC ==
--- NOTE | 2020-02-16 09:31 | REP ---
INDICATION: H/O KIDNEY STONES W/ NEW ONSET FLANK PAIN COMPARISON: None TECHNIQUE: Axial noncontrast images from the lung bases to the pubic symphysis with coronal and sagittal reformations. This CT examination was performed using the following dose reduction techniques: Automated exposure control, adjustment of mA and/or kv according to the patient's size, and use of iterative reconstruction technique. FINDINGS: Left kidney demonstrates moderate acute obstructive uropathy including perinephric stranding and grade 3 hydroureteronephrosis with a 7 mm obstructing calculus in the mid left ureter (images 96-100) along with nonobstructing intrarenal calculi measuring between 2 and 6 mm. Right kidney includes nonobstructing calculi up to 4.5 mm. Liver, spleen, pancreas, and bilateral adrenal glands are normal. Evidence for prior cholecystectomy. The enteric system is without obstruction or acute inflammatory process. Normal terminal ileum and appendix are identified in the right lower quadrant. Few scattered sigmoid diverticula noted without acute diverticulitis. Pelvis demonstrates normal bladder and age-appropriate uterus/adnexa. No pelvic fluid or ascites. No free air. Left para-aortic adenopathy at the level of the kidney likely reactive and related to the above-mentioned obstructive uropathy. Osseous structures are intact and without acute process. Lung bases are clear. IMPRESSION: Moderate acute left-sided obstructive uropathy with a 7 mm obstructing calculus in the mid left ureter. Bilateral nonobstructing renal calculi noted. <Electronically signed by Davis Asencio > 02/16/20 [id number]
== END ==
LOC: M RAD 08:41
PROVIDERS: ATTEND Nurse Practitioner Women's Health
DX: N20.2 Calculus of kidney with calculus of ureter (principal); Z87.442 Personal history of urinary calculi

== ENCOUNTER → 2020-03-25 | Outpatient (CLI) | payer BC ==
[~2020-03-25] MED LIST changes: -LISI-542 PO; +LISI-898 PO; +LISI10TA22 PO; -LISI10TA4 PO
--- NOTE | 2020-03-25 16:08 | REP ---
INDICATION: PRE OP. COMPARISON: Comparison chest x-ray June 28, 2010. Comparison CT study February 21, 2018. TECHNIQUE: Two views.. FINDINGS: There are surgical clips in right upper quadrant the abdomen. 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 Cardiomediastinal silhouette is unremarkable otherwise. Heart size is normal. Pleural angles are sharp. Lung khan are clear. No bony abnormality is appreciated. It IMPRESSION: No active disease.. <Electronically signed by Rya Gold > 03/25/20 [id number]
== END ==
LOC: M WUC 15:34
PROVIDERS: ATTEND Physician Assistant Medical
DX: Z01.818 Encounter for other preprocedural examination (principal)

== ENCOUNTER → 2020-04-01 | Outpatient (CLI) | payer BC ==
[~2020-04-01] MED LIST changes: +ACET50CA PO; +MONT10TA10 PO; +SYNT175T2 PO; +VITA50005 PO
[2020-04-01 19:10] LABS: BASO # 0.1 10^3/uL (0.0-0.2); BASO % 0.6 % (0.0-1.0); EOS % 0.1 % (0.0-3.0); HEMATOCRIT 39.3 % (36.0-47.0); LYMPH # 1.9 10^3/uL (1.5-5.0); LYMPH % 22.8 % (24.0-44.0); MEAN CORPUSCULAR HEMOGLOBIN 26.2 pg (27.0-33.0); MEAN CORPUSCULAR HGB CONC 30.5 g/dl (32.0-36.5); MEAN CORPUSCULAR VOLUME 85.8 fl (80.0-96.0); MONO # 0.6 10^3/uL (0.0-0.8); MONO % 7.3 % (2.0-8.0); NEUTROPHILS # 5.6 10^3/uL (1.5-8.5); NEUTROPHILS % 67.9 % (36.0-66.0); PLATELET COUNT, AUTOMATED 202 10^3/uL (150-450); RED BLOOD COUNT 4.58 10^6/uL (4.00-5.40); WHITE BLOOD COUNT 8.3 10^3/uL (4.0-10.0)
[2020-04-01 19:17] LABS: APPEARANCE, URINE CLEAR (CLEAR); BACTERIA, URINE AUTO NEGATIVE (NEGATIVE); BILIRUBIN, URINE AUTO NEGATIVE (NEGATIVE); BLOOD, URINE BLOOD 3+ (NEGATIVE); COLOR, URINE YELLOW (YELLOW); GLUCOSE, URINE (UA) AUTO NEGATIVE (NEGATIVE); KETONE, URINE AUTO NEGATIVE (NEGATIVE); LEUKOCYTE ESTERASE, URINE AUTO NEGATIVE (NEGATIVE); NITRITE, URINE AUTO NEGATIVE (NEGATIVE); PROTEIN, URINE AUTO 1+ mg/dL (NEGATIVE); RBC, URINE AUTO TNTC /HPF (0-3); SPECIFIC GRAVITY URINE AUTO 1.017 (1.002-1.035); SQUAMOUS EPITHELIAL CELL UR AU 1 /HPF (0-6); UROBILINOGEN, URINE AUTO 0.2 mg/dL (0.0-2.0); WBC, URINE AUTO 2 /HPF (0-3)
[2020-04-01 19:35] LABS: CREATININE FOR GFR 1.43 MG/DL (0.55-1.30); GLOMERULAR FILTRATION RATE 40.9 (>51)
== END ==
LOC: M WUC 15:47
PROVIDERS: ATTEND Physician Assistant Medical
DX: Z01.812 Encounter for preprocedural laboratory examination (principal)

== ENCOUNTER → 2020-04-02 | Outpatient (CLI) | payer BC | LOC: M LABSMTC 09:07 | PROVIDERS: ATTEND Anesthesiology | DX: Z01.812 Encounter for preprocedural laboratory examination (principal); Z20.822 Contact with and (suspected) exposure to COVID-19 ==

== ENCOUNTER 2020-04-07 10:25 | Day surgery (SDC) | payer BC ==
[~2020-04-07] VITALS: Ht 170.2 cm; Wt 133.7 kg
[~2020-04-07 10:25] MED LIST changes: +CONRAY-60 60% 50ML VIAL (Q9961) As Ordered ONE; +LR 1,000 ML IV ONE; +ceFAZolin SOD 1 GM in D5W MINI-BAG PLUS 50 ML IV ONE; +ceFAZolin SOD 2 GM in IV 1 EA IV ONE
--- OUTSIDE RECORDS SUMMARY | 2020-04-07 10:30 | CCD | Continuity of Care Document ---
Author Author Socorro HUDSON Organization Unknown Address [address] [address] [place] [address] Phone [phone] Care Team Providers Care Bonding Machine Setter Name Role Phone ROEL HUDSON AUTM [phone] Social History Type Date Description Comments Sex Unknown Allergies, Adverse Reactions, Alerts Active Allergies Reaction Severity Comments Date Morphine 03/02/2020 Meloxicam 03/02/2020 Medications Active Medications SIG Qnty Indications Ordering Provide r Date Hydrocodone-Acetaminophen 5-325mg Tablets Take One Tablet By Mouth Every 6 Hours Maximum Daily Dose Four Tablets Unknown Tamsulosin HCL 0.4mg Capsules Unknown Vitamin D (Ergocalciferol) 1.25mg (53469 Ut) Capsules Take 1 Capsule By Mouth Once A Week Unkno wn Pantoprazole Sodium 40mg Tablets D R Take One Tablet By Mouth Every Day Unknown Montelukast Sodium 10mg Tablets Take One Tablet By Mouth Every Day Unknown Levothyroxine Sodium 150mcg Tablet s Take One Tablet By Mouth Every Day Unknown Escitalopram Oxalate 10mg Tablets Take One Tablet By Mouth Every Day Unknown Cyclobenzaprine HCL 10mg Tablets Take One Tablet By Mouth Twice A Day as Needed Unknown Cetirizine HCL 10mg Tablets Take One Tablet By Mouth Every Day Unknown Atenolol 100mg Tablets Take One Half Tablet By Mouth Every Day Unknown Ibuprofen 800mg Tablets Aayush Masters MD Levothyroxine Sodium 175mcg Tablet s Take One Tablet By Mouth Every Day Unknown Levothyroxine Sodium 125mcg Tablet s Take One Tablet By Mouth Every Day Unknown Nystatin [id number]/GM Ointment Apply A Thin Layer To Rash On Left Forearm Two Times A Day For 14 Days Unknown Encounters Type Date Location Provider Dx Diagnosis Office Visit 03/14/2020 11:45a [facility] GIOVANNA Klein J01.10 Acute frontal sinusitis, uns pecified E03.9 Hypothyroidism, unspecified E55.9 Vitamin D deficiency, unspec ified Office Visit 12/14/2019 11:15a [facility] GIOVANNA Kelin I10 Essential (primary) hyperten corina E78.5 Hyperlipidemia, unspecified E03.9 Hypothyroidism, unspecified Assessments Date Code Description Provider 03/14/2020 J01.10 Acute frontal sinusitis, unspeci fied GIOVANNA Adkins 03/14/2020 E03.9 Hypothyroidism, unspecified GIOVANNA Keith 03/14/2020 E55.9 Vitamin D deficiency, unspecifie d GIOVANNA Adkins 12/14/2019 I10 Essential (primary) hypertension GIOVANNA Adkins 12/14/2019 E78.5 Hyperlipidemia, unspecified GIOVANNA Keith 12/14/2019 E03.9 Hypothyroidism, unspecified GIOVANNA Keith Plan of Treatment Future Appointment(s):* 03/21/2020 10:00 am - GIOVANNA Adkins at [facility] Referrals Refer to Reason for Referral Status Appt Date Olga Rodrigues DR. PATIENT WITH TN CHOLESTEROL AND THYROID DISEASE, HAS RECURRENT UPPER CHEST PAIN FOR SEVERAL YEARS. PAIN IS ASSOCIATED WITH ACTIVITY. PLEASE EVAL AND TREAT. [facility] [id number] [facility] [address] [place], [place] [id number] [phone]
--- OUTSIDE RECORDS SUMMARY | 2020-04-07 10:30 | CCD | Continuity of Care Document ---
Author Author Socorro HUDSON Organization Unknown Address [address] [address] [place] [address] Phone [phone] Care Team Providers Care Pigment Pusher Name Role Phone ROEL UHDSON AUTM [phone] Social History Type Date Description Comments Sex Unknown Allergies, Adverse Reactions, Alerts Active Allergies Reaction Severity Comments Date Morphine 03/02/2020 Meloxicam 03/02/2020 Medications Active Medications SIG Qnty Indications Ordering Provide r Date Hydrocodone-Acetaminophen 5-325mg Tablets Take One Tablet By Mouth Every 6 Hours Maximum Daily Dose Four Tablets Unknown Tamsulosin HCL 0.4mg Capsules Unknown Vitamin D (Ergocalciferol) 1.25mg (77293 Ut) Capsules Take 1 Capsule By Mouth [...] Tablet By Mouth Every Day Unknown Nystatin 811468Nomz/GM Ointment Apply A Thin Layer To Rash On Left Forearm Two Times A Day For 14 Days Unknown Results Test Acquired Date Facility Test Result H/L Range Note CBC With Differential 04/01/[address] [address] [phone] White Blood Count 8.3 10 Normal 4.0-10.0 Red Blood Count 4.58 10 Normal 4.00-5.40 Hemoglobin 12.0 g/dL Normal 12.0-15.5 Hematocrit 39.3 % Normal 36.0-47.0 Mean Corpuscular Volume 85.8 fl Normal 80.0-96.0 Mean Corpuscular Hemoglobin 26.2 pg Low 27.0-33.0 Mean Corpuscular HGB Conc 30.5 g/dL Low 32.0-36.5 Red Cell Distribution Width 17.9 % High 11.5-14.5 Platelet Count, Automated 202 10 Normal 150-450 Neutrophils % 67.9 % High 36.0-66.0 Lymph % 22.8 % Low 24.0-44.0 Adams % 7.3 % Normal 2.0-8.0 Eos % 0.1 % Normal 0.0-3.0 Baso % 0.6 % Normal 0.0-1.0 Immature Granulocyte % 1.3 % Normal 0-3.0 Nucleated Red Blood Cell % 0.0 % Normal 0-0 Neutrophils # 5.6 10 Normal 1.5-8.5 Lymph # 1.9 10 Normal 1.5-5.0 Adams # 0.6 10 Normal 0.0-0.8 Eos # 0.0 10 Normal 0.0-0.5 Baso # 0.1 10 Normal 0.0-0.2 Ua Routine 04/01/[address] [address] [phone] Appearance, Urine CLEAR Normal Clear Color, Urine YELLOW Normal Yellow PH,Urine 7.0 units Normal 5.0-9.0 Specific Gardner Urine Auto 1.017 Normal 1.002-1.035 Protein, Urine Auto 1+ mg/dL High Negative Glucose, Urine (Ua) Auto NEGATIVE mg/dL Normal Negative Ketone, Urine Auto NEGATIVE mg/dL Normal Negative Urobilinogen, Urine Auto 0.2 mg/dL Normal 0.0-2.0 Bilirubin, Urine Auto NEGATIVE Normal Negative Nitrite, Urine Auto NEGATIVE Normal Negative Leukocyte Esterase, Urine Auto NEGATIVE Normal Negative Blood, Urine Blood 3+ High Negative WBC, Urine Auto 2 /HPF Normal 0-3 RBC, Urine Auto TNTC /HPF High 0-3 Bacteria, Urine Auto NEGATIVE Normal Negative Squamous Epithelial Cell Ur AU 1 /HPF Normal 0-6 Hyaline Cast, Urine Auto 0 /LPF Normal 0-1 Basic Metabolic Profile 04/01/2020 [facility] [address] [place], [place] [address] [phone] Glucose, Fasting 126 mg/dL High 70-100 Blood Urea Nitrogen 14 mg/dL Normal 7-18 Creatinine For GFR 1.43 mg/dL High 0.55-1.30 Glomerular Filtration Rate 40.9 Low >51 1 Sodium Level 142 mEq/L Normal 136-145 Potassium Serum 4.0 mEq/L Normal 3.5-5.1 Chloride Level 112 mEq/L High 98-107 Carbon Dioxide Level 24 mEq/L Normal 21-32 Anion Gap 6 mEq/L Low 8-16 Calcium Level 8.0 mg/dL Low 8.5-10.1 Laboratory test finding 04/01/2020 [facility] [address] [place], [place] [address] [phone] Urine Culture FULL REPORT IN L <SEE NOTE> Normal 2 1 Units are mL/min/1.73 m2 Chronic Kidney Disease Staging per NKF: Stage I & II GFR >=60 Normal to Mildly Decreased Stage III GFR 30-59 Moderately Decreased Stage IV GFR 15-29 Severely Decreased Stage V GFR <15 Very Little GFR Left ESRD GFR <15 on RESIDENT ENGINEER 2 FULL REPORT IN LAB NOTES (eC W and Medent). NO GROWTH Encounters Type Date Location Provider Dx Diagnosis Office Visit 03/14/2020 11:45a [facility] GIOVANNA Klein J01.10 Acute frontal sinusitis, uns pecified E03.9 Hypothyroidism, unspecified E55.9 Vitamin D deficiency, unspec ified Office Visit 12/14/2019 11:15a [facility] GIOVANNA Klein I10 Essential (primary) hyperten corina E78.5 Hyperlipidemia, unspecified E03.9 Hypothyroidism, unspecified Assessments Date Code Description Provider 03/14/2020 J01.10 Acute frontal sinusitis, unspeci fied GIOVANNA Adkins 03/14/2020 E03.9 Hypothyroidism, unspecified GIOVANNA Keith 03/14/2020 E55.9 Vitamin D deficiency, unspecifie d GIOVANNA Adkins 12/14/2019 I10 Essential (primary) hypertension GIOVANNA Adkins 12/14/2019 E78.5 Hyperlipidemia, unspecified GIOVANNA Keith 12/14/2019 E03.9 Hypothyroidism, unspecified GIOVANNA Keith Referrals Refer to Reason for Referral Status Appt Date Olga Rodrigues DR. PATIENT WITH TN CHOLESTEROL AND THYROID DISEASE, HAS RECURRENT UPPER CHEST PAIN FOR SEVERAL YEARS. PAIN IS ASSOCIATED WITH ACTIVITY. PLEASE EVAL AND TREAT. Sent [facility] [address] [facility] [address] [place], [place] [address] [phone]
--- OUTSIDE RECORDS SUMMARY | 2020-04-07 10:30 | CCD ---
Author Author [facility] Organization [facility] ems Address Unknown Phone Unavailable Care Team Providers Care Enrichment Teacher Name Role Phone Ann Silva Unavailable PROBLEMS Type Condition ICD9-CM Code [id number] Code Onset Dates Condition S tatus SNOMED Code Notes Problem Kidney stones N20.0 Active 97272106 Problem Pre-op testing Z01.818 Active 466083132 Problem Reactive airway disease J45.909 Active 17461630 9106 Problem Ureteral stone with hydronephrosis N13.2 Activ e 432169500 Problem UTI (urinary tract infection) N39.0 Active 68 336411 ALLERGIES Allergen (clinical drug ingredient) Drug/Non Drug Allergy do cumented on EMR Reaction Allergy Type Onset Date Status morphine Morphine Sulfate(ND Code:[address]-83) Nausea/Vomiti ng Drug Allergy Active meloxicam Meloxicam(NDC Code:[address]-60) palpitations Drug Allerg y Active amoxicillin / clavulanate Augmentin(NDC Code:[address]-15) Diar chetna Drug Allergy Active ENCOUNTERS from 1967 to 2020-02-25 Encounter Location Date Provider Diagnosis [facility] [address] [place] [address] Feb Ann Shira Kidney stones N20.0 and Pre-op testing Z 01.818 IMMUNIZATIONS Vaccine Route Administration Date Status Influenza (6mo & up) Fluzone Unknown Jan 17, 2015 Ref used Influenza (6mo & up) Fluzone Unknown Dec 31, 2014 Ref used Influenza (6mo & up) Fluzone Unknown Nov 20, 2014 Ref used SOCIAL HISTORY Tobacco Use: Social History Observation Description Date Details (start date - stop date) never smoker Sex Assigned At : Social History Observation Description Sex Assigned At Unknown Tobacco Use: Question Answer Notes Are you a: never smoker REASON FOR REFERRAL No Information VITAL SIGNS Weight 294 lbs Feb, Height 67 in Feb, BMI 46.04 kg/m2 Feb, Heart Rate 74 /min Feb, Respiratory Rate 18 /min Feb, Oximetry 96 Feb, Blood pressure systolic 130 mm Hg Feb, Blood pressure diastolic 64 mm Hg Feb, MEDICATIONS Medication SIG (Take, Route, Frequency, Duration) Notes Start Da te End Date Status Plaquenil 200 MG 1 tablet with food or milk Orally bid Active Ibuprofen 800 MG 1 tablet with food or milk as needed Ora lly Three times a day Active Benadryl 25 MG 1 capsule as needed Orally every 6 hrs Active Ciprofloxacin HCl 500 MG 1 tablet for your cystoscopy today Orally as directed Jul, Not-Taking Lisinopril 10 MG 1 tablet Orally Once a day for 30 day(s) Active Loratadine 10 MG 1 tablet Orally Once a day for 30 day(s) Active Ultram 50 MG 1 tablet Orally every 6 hours as needed for pain (MDD 4) Jul, Not-Taking Singulair 10 MG 1 tablet Orally Once a day for 30 day(s) Active Atenolol 50 MG 1 tablet Orally Once a day Active Levothyroxine Sodium 100 MCG 1 tablet Orally Once a day Active Ketorolac Tromethamine 10 MG 1 tablet with food or mil k as needed Orally every 6 hrs for 5 day(s) May, Not-Taking Aspir-81 81 MG 1 tablet Orally Once a day Active [place] 5-325 MG 1 tablet as needed Orally every 6 hrs, MDD 4 Feb, Active Flomax 0.4 MG 1 capsule Orally Once a day for 30 day(s) May, Active Lexapro 10 MG 1 tablet Orally Once a day Active AcetaZOLAMIDE 500 MG Orally Acti ve Bactrim DS 800-160 MG 1 tablet Orally Twice a day for 5 days May, Not-Taking Cyclobenzaprine HCl 10 MG 1 tablet Orally bid Active Percocet 5-325 MG 1 tablet as needed Orally every 6 hrs, MDD 4 Jan, Not-Taking Pantoprazole Sodium 40 MG 1 tablet Orally Once a day Active PROCEDURES No Information RESULTS No Results REASON FOR VISIT per Ann kidney stone MEDICAL (GENERAL) HISTORY Type Description Date Medical History DDD Medical History Anxiety Medical History Vitamin D Deficiency Medical History GERD Medical History pseudotumor cerebri Medical History Hypothyroidism Medical History Kidney Stone Medical History Anemia Medical History Bulging disc in cervical and lumbar spin e Medical History RA Surgical History T&A in Surgical History Cholecystectomy 1988 Surgical History liposarcoma 2003 Surgical History Lithotripsy 12/2006 Surgical History ureteroscopy 09/21/16 Surgical History bilateral ureteroscopy with laser litho 07/16/2018 Surgical History cystoscopy with bilateral stent removal 07/21/2018 Hospitalization History Surgicaly related Goals Section No Information Health Concerns No Information MEDICAL EQUIPMENT No Information MENTAL STATUS No Information FUNCTIONAL STATUS No Information ASSESSMENTS Encounter Date Diagnosis Assessment Notes Treatment Notes Treatm ent Clinical Notes Feb, Kidney stones (ICD-10 - N20.0) Feb, Pre-op testing (ICD-10 - Z01.818) PLAN OF TREATMENT Medication Medication Name Sig Start Date Stop Date [place] 5-325 MG 1 tablet as needed Orally every 6 hrs, MDD 4 Feb, Treatment Notes Test Name Order Date CBC - Complete Blood Count 2020-02-25 Basic Metabolic Profile (BMP) 2020-02-25 PT & APTT 2020-02-25 UA URINALYSIS 2020-02-25 URINE CULTURE 2020-02-25 Chest X-ray PA and lateral 2020-02-25 Electrocardiogram (EKG) 2020-02-25 Next Appt Details OR Reason: Provider Name:Antonio Holland, 2020-03-14 2 11:00:00 AM, [address], [place], [address], Insurance Providers Payer Name Payer Address Payer Phone Insured Name Patient Relati onship to Insured Coverage Start Date Coverage End Date [employer]OB U[employer]NN BIRD PPO [phone] [facility] [employer] [place] [address] JANICE TAVARES
--- OUTSIDE RECORDS SUMMARY | 2020-04-07 10:30 | CCD | Continuity of Care Document ---
Author Author Socorro PAIGE Organization Unknown Address [address] [place] [address] [place] [address] Phone [phone] Care Team Providers Care Coffee Blender Name Role Phone [facility] AUTM Problems Active Problems Provider Date Acute upper respiratory infection Nghia Damon P.A. Onset: 03/24/2010 Social History Type Date Description Comments Sex Unknown Tobacco Use Start: Unknown Never Smoked Cigarettes ETOH Use Denies alcohol use Tobacco Use Start: Unknown Patient has never smoked Smoking Status Reviewed: 02/02/20 Patient has never smoked Allergies, Adverse Reactions, Alerts Active Allergies Reaction Severity Comments Date Morphine rash 02/16/2012 Meloxicam elevated BP 02/16/2012 Inactive Allergies NKDA 09/22/2008 Medications Active Medications SIG Qnty Indications Ordering Provide r Date Atenolol 50mg Tablets od 45tabs Unknown Pantoprazole Sodium 40mg Solution Rec Unknown Lisinopril 10mg Tablets 1 po qd Unknown Levothyroxine Sodium 100mcg Soluti on Rec Unknown Vitamin D 31024Sfao Capsules Unknown Diamox Sequels 500mg Caps ER 12HR Unknown Flexeril 10mg Tablets 1 tab three times a day as needed 15tabs Unknown Escitalopram Oxalate 10mg Tablets 1 by mouth every day 90tabs Unknown Loratadine 10mg Capsules 1 tab by mouth every evening Unknown Montelukast Sodium 10mg Tablets take one tablet by mouth every day for allergy symptoms U nknown Immunizations Description No Information Available Vital Signs Date Vital Result Comment 02/02/2020 11:57am BP Systolic 100 mmHg BP Diastolic 70 mmHg Heart Rate 73 /min Respiratory Rate 14 /min O2 % BldC Oximetry 99 % Body Temperature 100.2 F Weight 275.00 lb Height 67 inches 5'7" BMI (Body Mass Index) 43.1 kg/m2 Pain Level 4 05/31/2018 1:13pm BP Systolic 144 mmHg BP Diastolic 82 mmHg Heart Rate 109 /min Respiratory Rate 16 /min O2 % BldC Oximetry 99 % Body Temperature 98.7 F Weight 295.00 lb Height 67 inches 5'7" BMI (Body Mass Index) 46.2 kg/m2 Pain Level 9 Results Description No Information Available Procedures Description No Information Available Medical Devices Description No Information Available Encounters Type Date Location Provider Dx Diagnosis Office Visit 02/02/2020 12:00p Main Office GIOVANNA Ríos J06.9 Acute upper respiratory infection, unspecified Z20.828 Contact w and exposure to ot h viral communicable diseases Assessments Date Code Description Provider 02/02/2020 J06.9 Acute upper respiratory infectio n, unspecified GIOVANNA Ríos 02/02/2020 Z20.828 Contact with and ([place] spected) exposure to other viral communicable diseases GIOVANNA Ríos Plan of Treatment 02/02/2020 - GIOVANNA Ríos* J06.9 Acute upper respiratory infection, unspecified* Comments:* supportive: vit c, rest, fluids, steam, gargles if sore throat, RTC or seek other medical attention if worsening or just not better within 1 week * Z20.828 Contact with and (suspected) exposure to other viral communicable diseases* Comments:* POC rapid COVID neg today, neg flu a and b Functional Status Description No Information Available Mental Status Description No Information Available Referrals Description No Information Available
--- OUTSIDE RECORDS SUMMARY | 2020-04-07 10:30 | CCD ---
Author Author [facility] em[facility] Organization [facility] ems Address Unknown Phone Unavailable Care Team Providers Care Air Deodorizer Servicer Name Role Phone Bennie Wagner Unavailable PROBLEMS Type Condition ICD9-CM Code [id number] Code Onset Dates Condition S tatus SNOMED Code Notes Problem Kidney stones N20.0 Active 13707964 Problem Pre-op testing Z01.818 Active 892016768 Problem Reactive airway disease J45.909 Active 82777547 9106 Problem Ureteral stone with hydronephrosis N13.2 Activ e 354510597 Problem UTI (urinary tract infection) N39.0 Active 68 784259 ALLERGIES Allergen (clinical drug ingredient) Drug/Non Drug Allergy do cumented on EMR Reaction Allergy Type Onset Date Status morphine Morphine Sulfate(ND Code:[address]-55) Nausea/Vomiti ng Drug Allergy Active meloxicam Meloxicam(NDC Code:[address]-09) palpitations Drug Allerg y Active amoxicillin / clavulanate Augmentin(NDC Code:[address]-41) Diar chetna Drug Allergy Active ENCOUNTERS from 1967 to 2020-02-03 Encounter Location Date Provider Diagnosis [facility] Urology [address] [place] [address] Jan Bennie Wagner History of kidney stones Z87.442 IMMUNIZATIONS Vaccine Route Administration Date Status Influenza [...] REASON FOR REFERRAL No Information VITAL SIGNS No information MEDICATIONS Medication SIG (Take, Route, Frequency, Duration) Notes Start Da te End Date Status Flomax 0.4 MG 1 capsule Orally Once a day for 30 day(s) May, Active Ketorolac Tromethamine 10 MG 1 tablet with food or mil k as needed Orally every 6 hrs for 5 day(s) May, Not-Taking Bactrim DS 800-160 MG 1 tablet Orally Twice a day for 5 days May, Not-Taking Pantoprazole Sodium 40 MG 1 tablet Orally Once a day Active AcetaZOLAMIDE 500 MG Orally Acti ve Lexapro 10 MG 1 tablet Orally Once a day Active Ciprofloxacin HCl 500 MG 1 tablet for your cystoscopy today Orally as directed Jul, Not-Taking Levothyroxine Sodium 100 MCG 1 tablet Orally Once a day Active Cyclobenzaprine HCl 10 MG 1 tablet Orally bid Active Plaquenil 200 MG 1 tablet with food or milk Orally bid Active Atenolol 50 MG 1 tablet Orally Once a day Active Lisinopril 10 MG 1 tablet Orally Once a day for 30 day(s) Active Aspir-81 81 MG 1 tablet Orally Once a day Active Ultram 50 MG 1 tablet Orally every 6 hours as needed for pain (MDD 4) Jul, Not-Taking Benadryl 25 MG 1 capsule as needed Orally every 6 hrs Active PROCEDURES No Information RESULTS No Results REASON FOR VISIT rx MEDICAL (GENERAL) HISTORY Type Description Date Medical [...] Notes Treatment Notes Treatm ent Clinical Notes Jan, History of kidney stones (ICD-10 - Z87.442) PLAN OF TREATMENT Medication Medication Name Sig Start Date Stop Date Flomax 0.4 MG 1 capsule Orally Once a day for 30 day(s) May Next Appt Details Provider Name:Ann Silva, 2020-01- 8 02:00:00 PM, [address], [place], [address], Insurance Providers Payer Name Payer Address Payer Phone Insured Name Patient Relati onship to Insured Coverage Start Date Coverage End Date BC[facility] [place] [facility] [phone] [facility] [place] [address] JANICE TAVARES
--- OUTSIDE RECORDS SUMMARY | 2020-04-07 10:30 | CCD ---
Author Author [facility] Organization [facility] ems Address Unknown Phone Unavailable Care Team Providers Care Structural Draftsman Name Role Phone Jonathan Bill Unavailable PROBLEMS Type Condition ICD9-CM Code [id number] Code Onset Dates Condition S tatus SNOMED Code Notes Problem Kidney stones N20.0 Active 57464292 Problem Pre-op testing Z01.818 Active 192897278 Problem Reactive airway disease J45.909 Active 20138986 9106 Problem Ureteral stone with hydronephrosis N13.2 Activ e 902947900 Problem UTI (urinary tract infection) N39.0 Active 68 160273 ALLERGIES Allergen (clinical drug ingredient) Drug/Non Drug Allergy do cumented on EMR Reaction Allergy Type Onset Date Status morphine Morphine Sulfate(ND Code:[address]-94) Nausea/Vomiti ng Drug Allergy Active meloxicam Meloxicam(NDC Code:[address]-17) palpitations Drug Allerg y Active amoxicillin / clavulanate Augmentin(NDC Code:[address]-00) Diar chetna Drug Allergy Active ENCOUNTERS from 1967 to 2020-03-05 Encounter Location Date Provider Diagnosis [facility] Urology [address] [place] [address] Feb Bill Castillo IMMUNIZATIONS Vaccine Route Administration Date Status Influenza [...] 1 tablet Orally Once a day Active Waldo 5-325 MG 1 tablet as needed Orally [...] Information RESULTS No Results REASON FOR VISIT Exposed to Covid MEDICAL (GENERAL) HISTORY Type Description Date Medical [...] No Information FUNCTIONAL STATUS No Information ASSESSMENTS No Information PLAN OF TREATMENT Medication Medication Name Sig Start Date Stop Date Waldo 5-325 MG 1 tablet as needed Orally every 6 hrs, MDD 4 Feb, Next Appt Details Provider Name:Antonio Bobby Amalia, 2020-03-14 2 11:00:00 AM, [address], [place], [address], Insurance Providers Payer Name Payer Address Payer Phone Insured Name Patient Relati onship to Insured Coverage Start Date Coverage End Date BCBS [place] WATT[place] PPO [phone] [facility] [employer] [address] JANICE TAVARES
--- OUTSIDE RECORDS SUMMARY | 2020-04-07 10:30 | CCD ---
Author Author [facility] em[facility] Organization [facility] ems Address Unknown Phone Unavailable Care Team Providers Care Real Estate Associate Attorney Name Role Phone JhonatanAnn santiago Unavailable PROBLEMS Type Condition ICD9-CM Code RSL17-BE Code Onset Dates Condition S tatus SNOMED Code Notes Problem Kidney stones N20.0 Active 16212017 Problem Pre-op testing Z01.818 Active 653301229 Problem Reactive airway disease J45.909 Active 99868092 9106 Problem Ureteral stone with hydronephrosis N13.2 Activ e 413305331 Problem UTI (urinary tract infection) N39.0 Active 68 078678 ALLERGIES Allergen (clinical drug ingredient) Drug/Non Drug Allergy do cumented on EMR Reaction Allergy Type Onset Date Status morphine Morphine Sulfate(NDC Code:[address]-50) Nausea/Vomiti ng Drug Allergy Active meloxicam Meloxicam(NDC Code:[address]-22) palpitations Drug Allerg y Active amoxicillin / clavulanate Augmentin(NDC Code:[address]-13) Diar chetna Drug Allergy Active ENCOUNTERS from 1967 to 2020-02-10 Encounter Location Date Provider Diagnosis [facility] Urology [address] [place] [address] Jan Ann Silva Flank pain R10.9 and History of kidney s tones Z87.442 IMMUNIZATIONS Vaccine Route Administration Date Status [...] FOR REFERRAL No Information VITAL SIGNS Weight 296 lbs Jan, Height 67 in Jan, BMI 46.36 kg/m2 Jan, Heart Rate 72 /min Jan, Respiratory Rate 20 /min Jan, Temperature 96.7 degrees Fahrenheit Jan, Oximetry 97% Jan, Blood pressure systolic 124 mm Hg Jan, Blood pressure diastolic 80 mm Hg Jan, MEDICATIONS Medication SIG (Take, Route, Frequency, Duration) Notes Start Da te End Date Status Lisinopril 10 MG 1 tablet Orally Once a day for 30 day(s) Active Flomax 0.4 MG 1 capsule Orally Once a day for 30 day(s) May, Active Plaquenil 200 MG 1 tablet with food or milk Orally bid Active Cyclobenzaprine HCl 10 MG 1 tablet Orally bid Active Percocet 5-325 MG 1 tablet as needed Orally every 6 hrs, MDD 4 Jan, Active Pantoprazole Sodium 40 MG 1 tablet Orally Once a day Active Lexapro 10 MG 1 tablet Orally Once a day Active Bactrim DS 800-160 MG 1 tablet Orally Twice a day for 5 days May, Not-Taking Aspir-81 81 MG 1 tablet Orally Once a day Active Atenolol 50 MG 1 tablet Orally Once a day Active Ciprofloxacin HCl 500 MG 1 tablet for your cystoscopy today Orally as directed Jul, Not-Taking Ultram 50 MG 1 tablet Orally every 6 hours as needed for pain (MDD 4) Jul, Not-Taking Levothyroxine Sodium 100 MCG 1 tablet Orally Once a day Active Ketorolac Tromethamine 10 MG 1 tablet with food or mil k as needed Orally every 6 hrs for 5 day(s) May, Not-Taking Loratadine 10 MG 1 tablet Orally Once a day for 30 day(s) Active Benadryl 25 MG 1 capsule as needed Orally every 6 hrs Active AcetaZOLAMIDE 500 MG Orally Acti ve Singulair 10 MG 1 tablet Orally Once a day for 30 day(s) Active PROCEDURES No Information RESULTS Component Value Reference Range UA URINALYSIS Reviewed date:02/09/2020 06:46:51 Interpretation: Performing Lab:[facility] LABORATORY [address] [facility] [address] , ,[place] [address] URINE CULTURE Reviewed date:02/10/2020 10:32:56 Interpretation: Performing Lab:[facility] LAB[facility] [address] [facility] [address] , ,[place] [address] REASON FOR VISIT history of kidney stones MEDICAL (GENERAL) HISTORY Type Description Date Medical [...] Treatment Notes Treatm ent Clinical Notes Jan, Flank pain (ICD-10 - R10.9) Jan, History of kidney stones (ICD-10 - Z87.442) PLAN OF TREATMENT Medication Medication Name Sig Start Date Stop Date Percocet 5-325 MG 1 tablet as needed Orally every 6 hrs, MDD 4 2 8 Jan, 2020 Treatment Notes Test Name Order Date CT ABD & Pelvis w/o Contrast 2020-02-10 Insurance Providers Payer Name Payer Address Payer Phone Insured Name Patient Relati onship to Insured Coverage Start Date Coverage End Date BCBS [place] PPO [phone] [facility] [place] [address] JANICE TAVARES
--- OUTSIDE RECORDS SUMMARY | 2020-04-07 10:30 | CCD ---
Author Author [facility] ems Organization [facility] ems Address Unknown Phone Unavailable Care Team Providers Care Sales And Marketing Executive Name Role Phone Jhonatanpamela Ann Unavailable PROBLEMS Type Condition ICD9-CM Code [id number] Code Onset Dates Condition S tatus SNOMED Code Notes Problem Kidney stones N20.0 Active 14590456 Problem Pre-op testing Z01.818 Active 937211473 Problem Reactive airway disease J45.909 Active 55369597 9106 Problem Ureteral stone with hydronephrosis N13.2 Activ e 305307442 Problem UTI (urinary tract infection) N39.0 Active 68 436976 ALLERGIES Allergen (clinical drug ingredient) Drug/Non Drug Allergy do cumented on EMR Reaction Allergy Type Onset Date Status morphine Morphine Sulfate(ND Code:[address]-56) Nausea/Vomiti ng Drug Allergy Active meloxicam Meloxicam(NDC Code:[address]-04) palpitations Drug Allerg y Active amoxicillin / clavulanate Augmentin(NDC Code:[address]-77) Diar chetna Drug Allergy Active ENCOUNTERS from 1967 to 2020-02-20 Encounter Location Date Provider Diagnosis [facility] U[facility] [address] [place] [address] Feb Ann Silva History of kidney stones Z87.442 IMMUNIZATIONS Vaccine [...] 30 day(s) Active PROCEDURES No Information RESULTS No Results REASON FOR VISIT CT results MEDICAL (GENERAL) HISTORY Type Description Date Medical [...] Treatment Notes Treatm ent Clinical Notes Feb, History of kidney stones (ICD-10 - Z87.442) PLAN OF TREATMENT Medication Medication Name Sig Start Date Stop Date Percocet 5-325 MG 1 tablet as needed Orally every 6 hrs, MDD 4 2 8 Jan, 2020 Flomax 0.4 MG 1 capsule Orally Once a day for 30 day(s) May Next Appt Details Provider Name:Ann Silva, 2020 1 10:45:00 AM, [address] [address] [address], Insurance Providers Payer Name Payer Address Payer Phone Insured Name Patient Relati onship to Insured Coverage Start Date Coverage End Date [facility] [place] [id number] [facility] [place] [address] JANICE TAVARES
--- OUTSIDE RECORDS SUMMARY | 2020-04-07 10:31 | CCD | Continuity of Care Document ---
Author Author Socorro PAIGE Organization Unknown Address [address] [place] [address] [place] [address] Phone [phone] Care Team Providers Care Fructose Loader Name Role Phone [facility] AUTM [phone] Problems Active Problems Provider Date Acute upper [...] 100mcg Soluti on Rec Unknown Vitamin D 70497Mwin Capsules Unknown Diamox Sequels 500mg Caps ER [...] Medical Devices Description No Information Available Encounters Description No Information Available Assessments Date Code Description Provider 02/02/2020 J06.9 Acute upper respiratory infectio n, unspecified GIOVANNA Ríos 02/02/2020 Z20.828 Contact with and ([place] spe[place]) exposure to other viral communicable diseases GIOVANNA Ríos Plan of Treatment No Information Available Functional Status Description No Information Available Mental Status Description No Information Available Referrals Description No Information Available
--- OUTSIDE RECORDS SUMMARY | 2020-04-07 10:31 | CCD ---
Author Author [facility] Organization [facility] Address Unknown Phone Unavailable Care Team Providers Care Brancher Name Role Phone Juan Francisco, M Whit RPA Unavailable Unavailable Juan Francisco, M Whit RPA Unavailable Unavailable Juan Francisco, M Whit RPA Unavailable Unavailable Juan Francisco, M Whit RPA Unavailable Unavailable Juan Francisco, M Whit RPA Unavailable Unavailable Juan Francisco, M Whit RPA Unavailable Unavailable Juan Francisco, M Whit RPA Unavailable Unavailable Juan Francisco, M Whit RPA Unavailable Unavailable Juan Francisco, M Whit RPA Unavailable Unavailable Juan Francisco, M Whit RPA Unavailable Unavailable Juan Francisco, M Whit RPA Unavailable Unavailable Juan Francisco, M Whit RPA Unavailable Unavailable Juan Francisco, M Whit RPA Unavailable Unavailable Juan Francisco, M Whit RPA Unavailable Unavailable Juan Francisco, M Whit RPA Unavailable Unavailable Juan Francisco, M Whit RPA Unavailable Unavailable Juan Francisco, M Whit RPA Unavailable Unavailable Juan Francisco, M Whit RPA Unavailable Unavailable Juan Francisco, M Whit RPA Unavailable Unavailable Juan Francisco, M Whit RPA Unavailable Unavailable Juan Francisco, M Whit RPA Unavailable Unavailable Juan Francisco, M Whit RPA Unavailable Unavailable Juan Francsico, M Whit RPA Unavailable Unavailable Juan Francisco, M Whit RPA Unavailable Unavailable Juan Francisco, M Whit RPA Unavailable Unavailable Juan Francisco, M Whit RPA Unavailable Unavailable Juan Francisco, M Whit RPA Unavailable Unavailable Juan Francisco, M Whit RPA Unavailable Unavailable Juan Francisco, M Whit RPA Unavailable Unavailable Juan Francisco, M Whit RPA Unavailable Unavailable Juan Francisco, M Whit RPA Unavailable Unavailable Juan Francisco, M Whit RPA Unavailable Unavailable Juan Francisco, M Whit RPA Unavailable Unavailable Juan Francisco, M Whit RPA Unavailable Unavailable Juan Francisco, M Whit RPA Unavailable Unavailable Juan Francisco, M Whit RPA Unavailable Unavailable Juan Francisco, M Whit RPA Unavailable Unavailable Juan Francisco, M Whit RPA Unavailable Unavailable Juan Francisco, M Whit RPA Unavailable Unavailable Juan Francisco, M Whit RPA Unavailable Unavailable Juan Francisco, M Whit RPA Unavailable Unavailable Juan Francisco, M Whit RPA Unavailable Unavailable KIRSCHMAN, L ANDER FIRE EXTINGUISHER REPAIRER INSPECTOR Unavailable Unavailable KIRSCHMAN, L ANDER FIRE EXTINGUISHER REPAIRER INSPECTOR Unavailable Unavailable KIRSCHMAN, L ANDER FIRE EXTINGUISHER REPAIRER INSPECTOR Unavailable Unavailable KIRSCHMAN, L ANDER FIRE EXTINGUISHER REPAIRER INSPECTOR Unavailable Unavailable KIRSCHMAN, L ANDER FIRE EXTINGUISHER REPAIRER INSPECTOR Unavailable Unavailable KIRSCHMAN, L ANDER FIRE EXTINGUISHER REPAIRER INSPECTOR Unavailable Unavailable KIRSCHMAN, L ANDER FIRE EXTINGUISHER REPAIRER INSPECTOR Unavailable Unavailable KIRSCHMAN, L ANDER FIRE EXTINGUISHER REPAIRER INSPECTOR Unavailable Unavailable KIRSCHMAN, L ANDER FIRE EXTINGUISHER REPAIRER INSPECTOR Unavailable Unavailable KIRSCHMAN, L ANDER FIRE EXTINGUISHER REPAIRER INSPECTOR Unavailable Unavailable KIRSCHMAN, L ANDER FIRE EXTINGUISHER REPAIRER INSPECTOR Unavailable Unavailable KIRSCHMAN, L ANDER FIRE EXTINGUISHER REPAIRER INSPECTOR Unavailable Unavailable KIRSCHMAN, L ANDER FIRE EXTINGUISHER REPAIRER INSPECTOR Unavailable Unavailable KIRSCHMAN, L ANDER FIRE EXTINGUISHER REPAIRER INSPECTOR Unavailable Unavailable KIRSCHMAN, L ANDER FIRE EXTINGUISHER REPAIRER INSPECTOR Unavailable Unavailable KIRSCHMAN, L ANDER FIRE EXTINGUISHER REPAIRER INSPECTOR Unavailable Unavailable KIRSCHMAN, L ANDER FIRE EXTINGUISHER REPAIRER INSPECTOR Unavailable Unavailable KIRSCHMAN, L ANDER FIRE EXTINGUISHER REPAIRER INSPECTOR Unavailable Unavailable KIRSCHMAN, L ANDER FIRE EXTINGUISHER REPAIRER INSPECTOR Unavailable Unavailable KIRSCHMAN, L ANDER FIRE EXTINGUISHER REPAIRER INSPECTOR Unavailable Unavailable KIRSCHMAN, L ANDER FIRE EXTINGUISHER REPAIRER INSPECTOR Unavailable Unavailable KIRSCHMAN, L ANDER FIRE EXTINGUISHER REPAIRER INSPECTOR Unavailable Unavailable KIRSCHMAN, L ANDER FIRE EXTINGUISHER REPAIRER INSPECTOR Unavailable Unavailable KIRSCHMAN, L ANDER FIRE EXTINGUISHER REPAIRER INSPECTOR Unavailable Unavailable KIRSCHMAN, L ANDER FIRE EXTINGUISHER REPAIRER INSPECTOR Unavailable Unavailable KIRSCHMAN, L ANDER FIRE EXTINGUISHER REPAIRER INSPECTOR Unavailable Unavailable KIRSCHMAN, L ANDER FIRE EXTINGUISHER REPAIRER INSPECTOR Unavailable Unavailable KIRSCHMAN, L ANDER FIRE EXTINGUISHER REPAIRER INSPECTOR Unavailable Unavailable KIRSCHMAN, L ANDER FIRE EXTINGUISHER REPAIRER INSPECTOR Unavailable Unavailable KIRSCHMAN, L ANDER FIRE EXTINGUISHER REPAIRER INSPECTOR Unavailable Unavailable KIRSCHMAN, L ANDER FIRE EXTINGUISHER REPAIRER INSPECTOR Unavailable Unavailable KIRSCHMAN, L ANDER FIRE EXTINGUISHER REPAIRER INSPECTOR Unavailable Unavailable KIRSCHMAN, L ANDER FIRE EXTINGUISHER REPAIRER INSPECTOR Unavailable Unavailable KIRSCHMAN, L ANDER FIRE EXTINGUISHER REPAIRER INSPECTOR Unavailable Unavailable KIRSCHMAN, L ANDER FIRE EXTINGUISHER REPAIRER INSPECTOR Unavailable Unavailable KIRSCHMAN, L ANDER FIRE EXTINGUISHER REPAIRER INSPECTOR Unavailable Unavailable KIRSCHMAN, L ANDER FIRE EXTINGUISHER REPAIRER INSPECTOR Unavailable Unavailable KIRSCHMAN, L ANDER FIRE EXTINGUISHER REPAIRER INSPECTOR Unavailable Unavailable KIRSCHMAN, L ANDER FIRE EXTINGUISHER REPAIRER INSPECTOR Unavailable Unavailable KIRSCHMAN, L ANDER FIRE EXTINGUISHER REPAIRER INSPECTOR Unavailable Unavailable KIRSCHMAN, L ANDER FIRE EXTINGUISHER REPAIRER INSPECTOR Unavailable Unavailable KIRSCHMAN, L ANDER FIRE EXTINGUISHER REPAIRER INSPECTOR Unavailable Unavailable KIRSCHMAN, L ANDER FIRE EXTINGUISHER REPAIRER INSPECTOR Unavailable Unavailable KIRSCHMAN, L ANDER FIRE EXTINGUISHER REPAIRER INSPECTOR Unavailable Unavailable KIRSCHMAN, L ANDER FIRE EXTINGUISHER REPAIRER INSPECTOR Unavailable Unavailable KIRSCHMAN, L ANDER FIRE EXTINGUISHER REPAIRER INSPECTOR Unavailable Unavailable KIRSCHMAN, L ANDER FIRE EXTINGUISHER REPAIRER INSPECTOR Unavailable Unavailable KIRSCHMAN, L ANDER FIRE EXTINGUISHER REPAIRER INSPECTOR Unavailable Unavailable KIRSCHMAN, L ANDER FIRE EXTINGUISHER REPAIRER INSPECTOR Unavailable Unavailable KIRSCHMAN, L ANDER FIRE EXTINGUISHER REPAIRER INSPECTOR Unavailable Unavailable KIRSCHMAN, L ANDER FIRE EXTINGUISHER REPAIRER INSPECTOR Unavailable Unavailable ERIN, Mariana SANFORD MD Unavailable Unavailable ERIN, Mariana SANFORD MD Unavailable Unavailable ERIN, Mariana SANFORD MD Unavailable Unavailable ERIN, Mariana SANFORD MD Unavailable Unavailable ERIN, Mariana SANFORD MD Unavailable Unavailable ERIN, Mariana SANFORD MD Unavailable Unavailable ERIN, Mariana SANFORD MD Unavailable Unavailable ERIN, Mariana SANFORD MD Unavailable Unavailable ERIN, Mariana SANFORD MD Unavailable Unavailable ERIN, Mariana SANFORD MD Unavailable Unavailable ERIN, Mariana SANFORD MD Unavailable Unavailable ERIN, Mariana SANFORD MD Unavailable Unavailable ERIN, Mariana SANFORD MD Unavailable Unavailable ERIN, Mariana SANFORD MD Unavailable Unavailable ERIN, Mariana SANFORD MD Unavailable Unavailable ERIN, Mariana SANFORD MD Unavailable Unavailable ERIN, Mariana SANFORD MD Unavailable Unavailable ERIN, Mariana SANFORD MD Unavailable Unavailable ERIN, Mariana SANFORD MD Unavailable Unavailable ERIN, Mariana SANFORD MD Unavailable Unavailable ERIN, Mariana SANFORD MD Unavailable Unavailable ERIN, Mariana SANFORD MD Unavailable Unavailable ERIN, Mariana SANFORD MD Unavailable Unavailable ERIN, Mariana SANFORD MD Unavailable Unavailable ERIN, Mariana SANFORD MD Unavailable Unavailable ERIN, Mariana SANFORD MD Unavailable Unavailable ERIN, Mariana SANFORD MD Unavailable Unavailable ERIN, Mariana SANFORD MD Unavailable Unavailable ERIN, Mariana SANFORD MD Unavailable Unavailable ERIN, Mariana SANFORD MD Unavailable Unavailable ERIN, Mariana SANFORD MD Unavailable Unavailable ERIN, Mariana SANFORD MD Unavailable Unavailable ERIN, Mariana SANFORD MD Unavailable Unavailable ERIN, Mariana SANFORD MD Unavailable Unavailable ERIN, Mariana SANFORD MD Unavailable Unavailable ERIN, Mariana SANFORD MD Unavailable Unavailable ERIN, Mariana SANFORD MD Unavailable Unavailable ERIN, Mariana SANFORD MD Unavailable Unavailable ERIN, Mariana SANFORD MD Unavailable Unavailable ERIN, Mariana SANFORD MD Unavailable Unavailable ERIN, Mariana SANFORD MD Unavailable Unavailable ERIN, Mariana SANFORD MD Unavailable Unavailable ERIN, Mariana SANFORD MD Unavailable Unavailable ERIN, Mariana SANFORD MD Unavailable Unavailable ERIN, Mariana SANFORD MD Unavailable Unavailable ERIN, Mariana SANFORD MD Unavailable Unavailable ERIN, Mariana SANFORD MD Unavailable Unavailable ERIN, Mariana SANFORD MD Unavailable Unavailable ERIN, Mariana SANFORD MD Unavailable Unavailable ERIN, Mariana SANFORD MD Unavailable Unavailable ERIN, Mariana SANFORD MD Unavailable Unavailable ERIN, Mariana SANFORD MD Unavailable Unavailable ERIN, Mariana SANFORD MD Unavailable Unavailable ERIN, Mariana SANFORD MD Unavailable Unavailable ERIN, Mariana SANFORD MD Unavailable Unavailable ERIN, Mariana SANFORD MD Unavailable Unavailable ERIN, Mariana SANFORD MD Unavailable Unavailable ERIN, Mariana SANFORD MD Unavailable Unavailable ERIN, Mariana SANFORD MD Unavailable Unavailable ERIN, Mariana SANFORD MD Unavailable Unavailable ERIN, Mariana SANFORD MD Unavailable Unavailable ERIN, Mariana SANFORD MD Unavailable Unavailable ERIN, Mariana SANFORD MD Unavailable Unavailable ERIN, Mariana SANFORD MD Unavailable Unavailable ERIN, Mariana SANFORD MD Unavailable Unavailable ERIN, Mariana SANFORD MD Unavailable Unavailable ERIN, Mariana SANFORD MD Unavailable Unavailable ERIN, Mariana SANFORD MD Unavailable Unavailable ERIN, Mariana SANFORD MD Unavailable Unavailable ERIN, Mariana SANFORD MD Unavailable Unavailable ERIN, Mariana SANFORD MD Unavailable Unavailable ERIN, Mariana SANFORD MD Unavailable Unavailable ERIN, Mariana SANFORD MD Unavailable Unavailable ERIN, Mariana SANFORD MD Unavailable Unavailable ERIN, Mariana SANFORD MD Unavailable Unavailable ERIN, Mariana SANFORD MD Unavailable Unavailable ERIN, Mariana SANFORD MD Unavailable Unavailable ERIN, Mariana SANFORD MD Unavailable Unavailable ERIN, Mariana SANFORD MD Unavailable Unavailable ERIN, Mariana SANFORD MD Unavailable Unavailable ERIN, Mariana SANFORD MD Unavailable Unavailable ERIN, Mariana SANFORD MD Unavailable Unavailable ERIN, Mariana SANFORD MD Unavailable Unavailable ERIN, Mariana SANFORD MD Unavailable Unavailable ERIN, Mariana SANFORD MD Unavailable Unavailable ERIN, Mariana SANFORD MD Unavailable Unavailable ERIN, Mariana JUVENAL MD Unavailable Unavailable ERINMariana MD Unavailable Unavailable ERINMariana ROSEN MD Unavailable Unavailable ERIN, Mariana SANFORD MD Unavailable Unavailable ERIN, Mariana SANFORD MD Unavailable Unavailable TONTARSKI, G ROEL PA Unavailable Unavailable TONTARSKI, G ROEL PA Unavailable Unavailable TONTARSKI, G OREL PA Unavailable Unavailable TONTARSKI, G ROEL PA Unavailable Unavailable TONTARSKI, G ROEL PA Unavailable Unavailable TONTARSKI, G ROEL PA Unavailable Unavailable TONTARSKI, G ROEL PA Unavailable Unavailable TONTARSKI, G ROEL PA Unavailable Unavailable TONTARSKI, G ROEL PA Unavailable Unavailable TONTARSKI, G ROEL PA Unavailable Unavailable TONTARSKI, G ROEL PA Unavailable Unavailable TONTARSKI, G ROEL PA Unavailable Unavailable TONTARSKI, G ROEL PA Unavailable Unavailable TONTARSKI, G ROEL PA Unavailable Unavailable TONTARSKI, G ROEL PA Unavailable Unavailable TONTARSKI, G ROEL PA Unavailable Unavailable TONTARSKI, G ROEL PA Unavailable Unavailable TONTARSKI, G ROEL PA Unavailable Unavailable TONTARSKI, G ROEL PA Unavailable Unavailable TONTARSKI, G ROEL PA Unavailable Unavailable TONTARSKI, G ROEL PA Unavailable Unavailable TONTARSKI, G ROEL PA Unavailable Unavailable TONTARSKI, G ROEL PA Unavailable Unavailable TONTARSKI, G ROEL PA Unavailable Unavailable TONTARSKI, G ROEL PA Unavailable Unavailable TONTARSKI, G ROEL PA Unavailable Unavailable TONTARSKI, G ROEL PA Unavailable Unavailable TONTARSKI, G ROEL PA Unavailable Unavailable TONTARSKI, G ROEL PA Unavailable Unavailable TONTARSKI, G ROEL PA Unavailable Unavailable TONTARSKI, G ROEL PA Unavailable Unavailable TONTARSKI, G ROEL PA Unavailable Unavailable TONTARSKI, G ROEL PA Unavailable Unavailable TONTARSKI, G ROEL PA Unavailable Unavailable TONTARSKI, G ROEL PA Unavailable Unavailable TONTARSKI, G ROEL PA Unavailable Unavailable TONTARSKI, G ROEL PA Unavailable Unavailable TONTARSKI, G ROEL PA Unavailable Unavailable TONTARSKI, G ROEL PA Unavailable Unavailable TONTARSKI, G ROEL PA Unavailable Unavailable TONTARSKI, G ROEL PA Unavailable Unavailable TONTARSKI, G ROEL PA Unavailable Unavailable TONTARSKI, G ROEL PA Unavailable Unavailable TONTARSKI, G ROEL PA Unavailable Unavailable TONTARSKI, G ROEL PA Unavailable Unavailable TONTARSKI, G ROEL PA Unavailable Unavailable TONTARSKI, G ROEL PA Unavailable Unavailable TONTARSKI, G ROEL PA Unavailable Unavailable Cook, Jennie Denise PA Unavailable Unavailable Cook, Jennie Denise PA Unavailable Unavailable Cook, Jennie Denise PA Unavailable Unavailable Cook, Jennie Denise PA Unavailable Unavailable Cook, Jennie Denise PA Unavailable Unavailable Cook, Jennie Denise PA Unavailable Unavailable Cook, Jennie Denise PA Unavailable Unavailable Cook, Jennie Denise PA Unavailable Unavailable Cook, Jennie Denise PA Unavailable Unavailable Cook, Jennie Denise PA Unavailable Unavailable Re-disclosure Warning The records that you are about to access may contain information from federally-assisted alcohol or drug abuse programs. If such information is present, then the following federally mandated warning applies: This information has been disclosed to you from records protected by federal confidentiality rules (42 CFR part 2). The federal rules prohibit you from making any further disclosure of this information unless further disclosure is expressly permitted by the written consent of the person to whom it pertains or as otherwise permitted by 42 CFR part 2. A general authorization for the release of medical or other information is NOT sufficient for this purpose. The Federal rules restrict any use of the information to criminally investigate or prosecute any alcohol or drug abuse patient.The records that you are about to access may contain highly sensitive health information, the redisclosure of which is protected by Article 27-F of the [facility] Public Health law. If you continue you may have access to information: Regarding HIV / AIDS; Provided by facilities licensed or operated by the [facility] Office of Mental Health; or Provided by the [facility] Office for People With Developmental Disabilities. If such information is present, then the following [facility] mandated warning applies: This information has been disclosed to you from confidential records which are protected by state law. State law prohibits you from making any further disclosure of this information without the specific written consent of the person to whom it pertains, or as otherwise permitted by law. Any unauthorized further disclosure in violation of state law may result in a fine or half-way sentence or both. A general authorization for the release of medical or other information is NOT sufficient authorization for further disc losure. Family History Family Member Name Family Member Gender Family Member Status Date o f Status Description Data Source(s) Unknown Unknown Problem [facility] ([facility]) Unknown Male Problem MEDENT ([facility]) Unknown Unknown Unknown Unknown Problem [facility] ([facility] Encounters Encounter Providers Location Date Indications Data Source(s ) Outpatient Attender: ROEL [facility] 03/14/2020 10:45:00 AM EST MEDENT ([facility]) Unknown [address] [facility] [facility] [id number] 03/02/2020 12:00:00 AM EST eCW1 ([facility]) Outpatient [address] [facility] [id number] 02/22/2020 12:00:00 AM EST eCW1 ([facility]) Unknown [address] [facility] [facility] [id number] 02/16/2020 12:00:00 AM EST eCW1 ([facility]) Outpatient [address] [facility] [id number] 02/08/2020 12:00:00 AM EST eCW1 ([facility]) Unknown [address] [facility] [id number] 02/03/2020 12:00:00 AM EST eCW1 ([facility]) Outpatient Attender: Denise nichole 02/02/2020 11:00:00 AM EST MEDENT ([facility] [address] [place] [address] 01/21/2020 12:00:00 AM EST eCW1 ([facility]) Outpatient Attender: ROEL [facility] 12/14/2019 10:15:00 AM EST MEDENT ([facility]) Outpatient Attender: JUVENAL KHAN MDReferrer: ANDER NIEVES FIRE EXTINGUISHER REPAIRER INSPECTOR 10/28/2019 12:49:09 PM EDT [facility] Recurring Patient Referrer: ANDER MART FIRE EXTINGUISHER REPAIRER INSPECTOR 10/26/2019 02:51:02 PM EDT [facility] Recurring Patient Referrer: ANDER MART FIRE EXTINGUISHER REPAIRER INSPECTOR 10/26/2019 02:43:07 PM EDT [facility] Outpatient Attender: Whit [facility] 07/21/2019 07:37:11 PM EDT [facility] Medications Medication Brand Name Start Date Product Form Dose Route Admi nistrative Instructions Pharmacy Instructions Status Indications Reaction Description Data Source(s) montelukast 10 MG Oral Tablet MONTELUKAST SODIUM 03/30/2020 12:0 0:00 AM EST tablet 90 TAKE ONE TABLET BY MOUTH EVERY D AY TAKE ONE TABLET BY MOUTH EVERY DAY SOLD: 04/04/2020 [facility] Escitalopram 10 MG Oral Tablet ESCITALOPRAM OXALATE 03/23/2020 1 2:00:00 AM EST tablet 90 TAKE ONE TABLET BY MOUTH EVERY D AY TAKE ONE TABLET BY MOUTH EVERY DAY SOLD: 03/28/2020 [facility] 150 mcg 03/22/2020 12:00:00 AM EST tablet 90 TAKE ONE TABLET BY MOUTH EVERY DAY TAKE ONE TABLET BY MOUTH EVERY DAY SOLD: 03/23/2020 [facility] Cyclobenzaprine hydrochloride 10 MG Oral Tablet CYCLOBENZAPR INE HCL 03/22/2020 12:00:00 AM EST tablet 180 TAKE ONE TABLET BY MOUTH TWICE A DAY NEEDED TAKE ONE TABLET BY MOUTH TWICE A DAY NEEDED SOLD: 03/23/2020 [facility] 300 mg 03/14/2020 12:00:00 AM EST capsule 20 TAKE ONE CAPSULE BY MOUTH TWICE A DAY TAKE ONE CAPSULE BY MOUTH TWICE A DAY SOLD: 03/14/2020 [facility] 10 mg 03/03/2020 12:00:00 AM EST tablet 14 TAKE ONE TABLET BY MOUTH TWICE A DAY TAKE ONE TABLET BY MOUTH TWICE A DAY SOLD: 03/07/2020 [facility] 5-325 mg 02/25/2020 12:00:00 AM EST tablet 20 TAKE ONE TABLET BY MOUTH EVERY 6 HOURS MAXIMUM DAILY DOSE = FOUR TABLETS TAKE ONE TABLET BY MOUTH EVERY 6 HOURS MAXIMUM DAILY DOSE = FOUR TABLETS SOLD: 02/27/2020 [facility] 10 mg 02/25/2020 12:00:00 AM EST tablet 90 TAKE ONE TABLET BY MOUTH EVERY DAY TAKE ONE TABLET BY MOUTH EVERY DAY SOLD: 02/25/2020 [facility] 500 mg 02/25/2020 12:00:00 AM EST capsule, extended relea se 90 TAKE ONE CAPSULE BY MOUTH EVERY DAY TAKE ONE CAPSULE BY MOUTH EVERY DAY SOLD: 02/25/2020 [facility] 0.4 mg 02/25/2020 12:00:00 AM EST capsule 30 TAKE ONE CAPSULE BY MOUTH EVERY DAY TAKE ONE CAPSULE BY MOUTH EVERY DAY SOLD: 02/27/2020 [facility] Acetaminophen 325 MG / Hydrocodone Alejandra trate 5 MG Oral Tablet [Gilbert] Gilbert 5- 325 MG Gilbert 5-325 MG 02/22/2020 12:00:00 AM EST 1.0 {tablet_as_needed} active Gilbert 5-325 MG eCW1 ([facility]) Acetaminophen 325 MG / Hydrocodone Alejandra trate 5 MG Oral Tablet [Gilbert] Gilbert 5- 325 MG Gilbert 5-325 MG 02/22/2020 12:00:00 AM EST 1.0 {tablet_as_needed} active Gilbert 5-325 MG eCW1 ([facility]) Acetaminophen 325 MG / Oxycodone Hydroch loride 5 MG Oral Tablet [Percocet] Percocet 5-325 MG Percocet 5-325 MG 02/08/2020 12:00:00 AM EST 1 .0 {tablet_as_needed} suspended Percocet 5- 325 MG eCW1 ([facility]) Acetaminophen 325 MG / Oxycodone Hydroch loride 5 MG Oral Tablet [Percocet] Percocet 5-325 MG Percocet 5-325 MG 02/08/2020 12:00:00 AM EST 1 .0 {tablet_as_needed} suspended Percocet 5- 325 MG eCW1 ([facility]) Acetaminophen 325 MG / Oxycodone Hydroch loride 5 MG Oral Tablet [Percocet] Percocet 5-325 MG Percocet 5-325 MG 02/08/2020 12:00:00 AM EST 1 .0 {tablet_as_needed} active Percocet 5-32 5 MG eCW1 ([facility]) Acetaminophen 325 MG / Oxycodone Hydroch loride 5 MG Oral Tablet [Percocet] Percocet 5-325 MG Percocet 5-325 MG 02/08/2020 12:00:00 AM EST 1 .0 {tablet_as_needed} active Percocet 5-32 5 MG eCW1 ([facility]) 0.4 mg 02/03/2020 12:00:00 AM EST capsule 30 TAKE ONE CAPSULE BY MOUTH EVERY DAY TAKE ONE CAPSULE BY MOUTH EVERY DAY SOLD: 03/21/2020 [facility] 0.4 mg 02/03/2020 12:00:00 AM EST capsule 30 TAKE ONE CAPSULE BY MOUTH EVERY DAY TAKE ONE CAPSULE BY MOUTH EVERY DAY SOLD: 02/03/2020 [facility] 1,250 mcg (50,000 unit) 12/15/2019 12:00:00 AM EST capsule 13 TAKE 1 CAPSULE BY MOUTH ONCE A WEEK TAKE 1 CAPSULE BY MOUTH ONCE A WEEK SOLD: 03/21/2020 [facility] 100 mg 12/15/2019 12:00:00 AM EST tablet 45 TAKE ONE-HALF TABLET BY MOUTH EVERY DAY TAKE ONE-HALF TABLET BY MOUTH EVERY DAY SOLD: 12/15/2019 [facility] 1,250 mcg (50,000 unit) 12/15/2019 12:00:00 AM EST capsule 13 TAKE 1 CAPSULE BY MOUTH ONCE A WEEK TAKE 1 CAPSULE BY MOUTH ONCE A WEEK SOLD: 12/18/2019 [facility] Escitalopram 10 MG Oral Tablet ESCITALOPRAM OXALATE 12/15/2019 1 2:00:00 AM EST tablet 90 TAKE ONE TABLET BY MOUTH EVERY D AY TAKE ONE TABLET BY MOUTH EVERY DAY SOLD: 12/18/2019 [facility] Cyclobenzaprine hydrochloride 10 MG Oral Tablet CYCLOBENZAPR INE HCL 12/15/2019 12:00:00 AM EST tablet 180 TAKE ONE TABLET BY MOUTH TWICE A DAY NEEDED TAKE ONE TABLET BY MOUTH TWICE A DAY NEEDED SOLD: 12/15/2019 [facility] montelukast 10 MG Oral Tablet MONTELUKAST SODIUM 12/15/2019 12:0 0:00 AM EST tablet 90 TAKE ONE TABLET BY MOUTH EVERY D AY TAKE ONE TABLET BY MOUTH EVERY DAY SOLD: 12/18/2019 [facility] pantoprazole 40 MG Delayed Release Oral Tablet PANTOPRAZOLE SODIUM 12/15/2019 12:00:00 AM EST tablet,delayed release (DR/EC) 90 T JOY ONE TABLET BY MOUTH EVERY DAY TAKE ONE TABLET BY MOUTH EVERY DAY SOLD: 12/18/2019 [facility] 150 mcg 12/15/2019 12:00:00 AM EST tablet 90 TAKE ONE TABLET BY MOUTH EVERY DAY TAKE ONE TABLET BY MOUTH EVERY DAY SOLD: 12/18/2019 [facility] 10 mg 12/15/2019 12:00:00 AM EST tablet 90 TAKE ONE TABLET BY MOUTH EVERY DAY TAKE ONE TABLET BY MOUTH EVERY DAY SOLD: 12/18/2019 [facility] 500 mg 11/28/2019 12:00:00 AM EDT capsule, extended relea se 90 TAKE ONE CAPSULE BY MOUTH EVERY DAY TAKE ONE CAPSULE BY MOUTH EVERY DAY SOLD: 11/29/2019 [facility] 10 mg 11/25/2019 12:00:00 AM EDT tablet 90 TAKE ONE TABLET BY MOUTH EVERY DAY TAKE ONE TABLET BY MOUTH EVERY DAY SOLD: 11/25/2019 [facility] 800 mg 10/27/2019 12:00:00 AM EDT tablet 90 TAKE ONE TABLET BY MOUTH THREE TIMES A DAY AFTER MEALS MAXIMUM DAILY DOSE = 3 TABLETS TAKE ONE TABLET BY MOUTH THREE TIMES A DAY AFTER MEALS MAXIMUM DAILY DOSE = 3 TABLETS SOLD: 11/29/2019 [facility] 800 mg 10/27/2019 12:00:00 AM EDT tablet 90 TAKE ONE TABLET BY MOUTH THREE TIMES A DAY AFTER MEALS MAXIMUM DAILY DOSE = 3 TABLETS TAKE ONE TABLET BY MOUTH THREE TIMES A DAY AFTER MEALS MAXIMUM DAILY DOSE = 3 TABLETS SOLD: 10/31/2019 [facility] 1,250 mcg (50,000 unit) 09/15/2019 12:00:00 AM EDT capsule 13 TAKE 1 CAPSULE BY MOUTH ONCE A WEEK TAKE 1 CAPSULE BY MOUTH ONCE A WEEK SOLD: 09/25/2019 [facility] montelukast 10 MG Oral Tablet MONTELUKAST SODIUM 09/12/2019 12:0 0:00 AM EDT tablet 90 TAKE ONE TABLET BY MOUTH EVERY D AY TAKE ONE TABLET BY MOUTH EVERY DAY SOLD: 09/13/2019 [facility] 40 mg 09/12/2019 12:00:00 AM EDT tablet,delayed release (DR/EC) 90 TAKE ONE TABLET BY MOUTH EVERY DAY TAKE ONE TABLET BY MOUTH EVERY DAY SOLD: 09/13/2019 [facility] 100 mg 09/12/2019 12:00:00 AM EDT tablet 45 TAKE 1/2 TABLET BY MOUTH ONCE DAILY TAKE 1/2 TABLET BY MOUTH ONCE DAILY SOLD: 09/13/2019 [facility] Cyclobenzaprine hydrochloride 10 MG Oral Tablet CYCLOBENZAPR INE HCL 09/12/2019 12:00:00 AM EDT tablet 180 TAKE ONE TABLET BY MOUTH TWICE A DAY NEEDED TAKE ONE TABLET BY MOUTH TWICE A DAY NEEDED SOLD: 09/13/2019 [facility] 175 mcg 09/12/2019 12:00:00 AM EDT tablet 90 TAKE ONE TABLET BY MOUTH EVERY DAY TAKE ONE TABLET BY MOUTH EVERY DAY SOLD: 09/13/2019 [facility] Escitalopram 10 MG Oral Tablet ESCITALOPRAM OXALATE 09/10/2019 1 2:00:00 AM EDT tablet 90 TAKE ONE TABLET BY MOUTH EVERY D AY TAKE ONE TABLET BY MOUTH EVERY DAY SOLD: 09/13/2019 [facility] 10 mg 08/26/2019 12:00:00 AM EDT tablet 90 TAKE ONE TABLET BY MOUTH EVERY DAY TAKE ONE TABLET BY MOUTH EVERY DAY SOLD: 08/26/2019 [facility] 150 mcg 06/15/2019 12:00:00 AM EDT tablet 90 TAKE ONE TABLET BY MOUTH EVERY DAY TAKE ONE TABLET BY MOUTH EVERY DAY SOLD: 06/16/2019 [facility] 40 mg 06/12/2019 12:00:00 AM EDT tablet,delayed release (DR/EC) 90 TAKE ONE TABLET BY MOUTH EVERY DAY TAKE ONE TABLET BY MOUTH EVERY DAY SOLD: 06/16/2019 [facility] 125 mcg 06/12/2019 12:00:00 AM EDT tablet 90 TAKE ONE TABLET BY MOUTH EVERY DAY TAKE ONE TABLET BY MOUTH EVERY DAY SOLD: 06/16/2019 [facility] Cyclobenzaprine hydrochloride 10 MG Oral Tablet CYCLOBENZAPR INE HCL 06/09/2019 12:00:00 AM EDT tablet 180 TAKE ONE TABLET BY MOUTH TWICE A DAY NEEDED TAKE ONE TABLET BY MOUTH TWICE A DAY NEEDED SOLD: 06/12/2019 [facility] Escitalopram 10 MG Oral Tablet ESCITALOPRAM OXALATE 06/03/2019 1 2:00:00 AM EDT tablet 90 TAKE ONE TABLET BY MOUTH EVERY D AY TAKE ONE TABLET BY MOUTH EVERY DAY SOLD: 06/03/2019 [facility] 500 mg 05/26/2019 12:00:00 AM EDT capsule, extended relea se 90 TAKE ONE CAPSULE BY MOUTH EVERY DAY TAKE ONE CAPSULE BY MOUTH EVERY DAY SOLD: 08/25/2019 [facility] 100 mg 05/26/2019 12:00:00 AM EDT tablet 45 TAKE ONE-HALF TABLET BY MOUTH EVERY DAY TAKE ONE-HALF TABLET BY MOUTH EVERY DAY SOLD: 05/26/2019 [facility] 500 mg 05/26/2019 12:00:00 AM EDT capsule, extended relea se 90 TAKE ONE CAPSULE BY MOUTH EVERY DAY TAKE ONE CAPSULE BY MOUTH EVERY DAY SOLD: 05/26/2019 [facility] 10 mg 05/26/2019 12:00:00 AM EDT tablet 90 TAKE ONE TABLET BY MOUTH EVERY DAY TAKE ONE TABLET BY MOUTH EVERY DAY SOLD: 05/26/2019 [facility] 875-125 mg 05/06/2019 12:00:00 AM EDT tablet 20 TAKE ONE TABLET BY MOUTH TWICE A DAY WITH FOOD UNTIL GONE TAKE ONE TABLET BY MOUTH TWICE A DAY WIT H FOOD UNTIL GONE SOLD: 05/06/2019 [facility] 1,250 mcg (50,000 unit) 04/17/2019 12:00:00 AM EST capsule 13 TAKE 1 CAPSULE BY MOUTH ONCE A WEEK TAKE 1 CAPSULE BY MOUTH ONCE A WEEK SOLD: 05/06/2019 [facility] 500 mg 04/07/2019 12:00:00 AM EST capsule 40 TAKE TWO CAPSULES BY MOUTH TWICE A DAY TAKE TWO CAPSULES BY MOUTH TWICE A DAY SOLD: 04/07/2019 [facility] 100,000 unit/gram 04/07/2019 12:00:00 AM EST ointment 30 APPLY A THIN LAYER TO RASH ON LEFT FOREARM TWO TIMES A DAY FOR 14 DAYS APPLY A THIN LAYER TO RASH ON LEFT FOREARM TWO TIMES A DAY FOR 14 DAYS SOLD: 04/08/2019 [facility] 500 mg 02/20/2019 12:00:00 AM EST capsule, extended relea se 90 TAKE ONE CAPSULE BY MOUTH EVERY DAY TAKE ONE CAPSULE BY MOUTH EVERY DAY SOLD: 02/24/2019 [facility] Escitalopram 10 MG Oral Tablet ESCITALOPRAM OXALATE 02/20/2019 1 2:00:00 AM EST tablet 90 TAKE ONE TABLET BY MOUTH EVERY D AY TAKE ONE TABLET BY MOUTH EVERY DAY SOLD: 02/24/2019 [facility] 100 mg 02/20/2019 12:00:00 AM EST tablet 45 TAKE ONE-HALF TABLET BY MOUTH EVERY DAY TAKE ONE-HALF TABLET BY MOUTH EVERY DAY SOLD: 02/24/2019 [facility] 125 mcg 02/20/2019 12:00:00 AM EST tablet 90 TAKE ONE TABLET BY MOUTH EVERY DAY TAKE ONE TABLET BY MOUTH EVERY DAY SOLD: 02/24/2019 [facility] 40 mg 02/20/2019 12:00:00 AM EST tablet,delayed release (DR/EC) 90 TAKE ONE TABLET BY MOUTH EVERY DAY TAKE ONE TABLET BY MOUTH EVERY DAY SOLD: 02/24/2019 [facility] 10 mg 02/20/2019 12:00:00 AM EST tablet 180 TAKE ONE TABLET BY MOUTH TWICE A DAY NEEDED TAKE ONE TABLET BY MOUTH TWICE A DAY NEEDED SOLD: 020 [facility] 20 mg 02/18/2019 12:00:00 AM EST tablet 10 TAKE TWO TABLETS BY MOUTH EVERY MORNING FOR FIVE DAYS TAKE TWO TABLETS BY MOUTH EVERY MORNING FOR FIVE DAYS SOLD: 02/20/2019 [facility] benzonatate 200 MG Oral Capsule BENZONATATE 02/18/2019 12:00:00 AM EST capsule 30 TAKE 1 CAPSULE BY MOUTH THREE TIME A DAY FOR TEN DAYS TAKE 1 CAPSULE BY MOUTH THREE TIME A DAY FOR TEN DAYS SOLD: 02/20/2019 [facility] 0.15 % (205.5 mcg) 02/18/2019 12:00:00 AM EST spray,non-aero shaw 30 TAKE ONE TO TWO SPRAY(S) EACH NOSTRIL TWO TIMES A DAY FOR 10 DAYS TAKE ONE TO TWO SPRAY(S) EACH NOSTRIL TWO TIMES A DAY FOR 10 DAYS SOLD: 02/20/2019 [facility] 10 mg 11/15/2018 12:00:00 AM EDT tablet 90 TAKE ONE TABLET BY MOUTH EVERY DAY TAKE ONE TABLET BY MOUTH EVERY DAY SOLD: 02/17/2019 [facility] Insurance Providers Payer name Policy type / Coverage type Policy ID Covered green party ID Covered green party's relationship to reddy Policy Reddy Plan Information [place] P[place] 302/307 [id number] HU2 [id number] [place] PPO 302/307 [id number] HU2 [id number] [place] PPO 302/307 [id number] HU2 [id number] EXCELLUS BCBS B [id number] P [id number] Blue Cross Blue Shield P [id number] SPOUSE [id number] Excellus BCBS P [id number] S VYI ANSI-Commercial [id number] ANSI-Commercial [id number] ANSI-Commercial [id number] ANSI-Commercial [id number] [place]CELLUS [place] [id number] SPOUSE [id number] ANSI-Commercial [id number] ANSI-Commercial [id number] BCBS/Excellus Commercial [id number] Family Dependent [id number] ANSI-Commercial [id number] ANSI-Commercial [id number] ANSI-Commercial [id number] EXCELLUS H [id number] Spouse [id number] ANSI-Commercial [id number] ANSI-Commercial [id number] [place] PPO 302/307 [id number] HU2 [id number] [facility] [id number] FR2 [id number] BCBS/Excell[employer] Commercial [id number] Family Dependent [id number] O UNAVAILABLE UNAVAILA BLE [facility] 00 FR2 00 BCBS/[place] Commercial [id number] Family Dependent [id number] BCBS/[place] Commercial [id number] Family Dependent [id number] Blue Cross Blue Shield P [id number] SELF [id number] Excellus BCYO P [id number] S VYI [id number] BCBS/[employer]cell[employer] Commercial [id number] Family Dependent [id number] BCBS/[place] Commercial [id number] Family Dependent [id number] BS [place] Medigap Part B [id number] BS [place] Commercial [id number] Family Dependent [id number] BS [place] Medigap Part B [id number] BS [place] Commercial [id number] Family Dependent [id number] BS [place] Medigap Part B [id number] BS [place] Commercial [id number] Family Dependent [id number] BS [place] Medigap Part B [id number] BS [place] Commercial [id number] Family Dependent [id number] BS [place] Medigap Part B [id number] BS [place] Commercial [id number] Family Dependent [id number] EXCELLUS H [id number] Unkn [id number] BS [place] Medigap Part B [id number] BS [place] Commercial [id number] Self [id number] [place] PPO 302/307 [id number] HU2 [id number] BCBS/[place] Commercial Family Dependent BC[place] PPO 302/307 [id number] HU2 [id number] BS Of [place] Commercial Family Dependent BLUE CROSS BLUE SHIELD-O/P [id number] 01 [id number] BC/BS Of [place] Commercial Family Depende nt BS/W/Id#Prefix/W ALL #'S Commercial Family Depende nt BCBS OF [place] [id number] SPO [id number] EXCELLUS BCBS P [id number] P [id number] [id number] BCBS [place] PPO 302/307 [id number] HU2 [id number] Results ID Date Data Source [id number] 04/02/2020 09:00:00 AM EST [facility] Name Value Range Interpretation Code Description Data Aarti rce(s) Supporting Document(s) SARS coronavirus 2 RNA Not Detected [facility] This lab was ordered by [facility] and reported by [facility]. ID Date Data Source [id number] 04/01/2020 03:47:00 PM EST [facility] (Dionicio Eaton [facility]) Name Value Range Interpretation Code Description Data Aarti rce(s) Supporting Document(s) Bacteria identified in Urine by Culture Laboratory test result Normal (applies to non-numeric results) [facility] ([facility] Eaton [facility]) FULL REPORT IN LAB NOTES ([facility] and [facility] ). NO GROWTH ID Date Data Source [id number] 04/01/2020 03:47:00 PM EST [facility] ([facility] Eaton [facility]) Name Value Range Interpretation Code Description Data Aarti rce(s) Supporting Document(s) Laboratory test finding (navigational concept) 126 mg/dL 7 0-100 Above high normal [facility] ([facility] Eaton [facility]) Laboratory test finding (navigational concept) 14 mg/dL 7 -18 Normal (applies to non-numeric results) [facility] ([facility] Eaton [facility]) Laboratory test finding (navigational concept) 1.43 mg/dL 0 .55-1.30 Above high normal [facility] ([facility] Eaton [facility]) Laboratory test finding (navigational concept) 40.9 Below low normal [facility] ([facility] Eaton [facility]) <content>Units are mL/min/1.73 m2</content>
<content></content>
<content>Chronic Kidney Disease Staging per NKF:</content>
<content></content>
<content>Stage I & II GFR >=60 Normal to Mildly Decreased</content>
<content>Stage III GFR 30- 59 Moderately Decreased</content>
<content>Stage IV GFR 15-29 Severely Decreased</content>
<content>Stage V GFR <15 Very Little GFR Left</content>
<content>ESRD GFR <15 on RELIABILITY ENGINEER</content>
<content></content> Laboratory test finding (navigational concept) 4.0 meq/L 3 .5-5.1 Normal (applies to non-numeric results) [facility] ([facility]ionic[facility] Eaton [facility]) Laboratory test finding (navigational concept) 142 meq/L 1 36-145 Normal (applies to non-numeric results) [facility] (Dionicio Eaton MD) Laboratory test finding (navigational concept) 24 meq/L 2 1-32 Normal (applies to non-numeric results) [facility] ([facility]ionic[facility] Eaton [facility]) Laboratory test finding (navigational concept) 112 meq/L 9 8-107 Above high normal [facility] ([facility] Eaton [facility]) Laboratory test finding (navigational concept) 6 meq/L 8-16 Below low normal [facility] ([facility]ionic[facility] Eaton [facility]) Laboratory test finding (navigational concept) 8.0 mg/dL 8 .5-10.1 Below low normal [facility] (Dionicio Eaton [facility]) ID Date Data Source [id number] 04/01/2020 03:47:00 PM EST [facility] ([facility]ionic[facility] Eaton [facility]) Name Value Range Interpretation Code Description Data Aarti rce(s) Supporting Document(s) Laboratory test finding (navigational concept) 7.0 units 5 .0-9.0 Normal (applies to non-numeric results) [facility] ([facility] Eaton [facility]) Laboratory test finding (navigational concept) Laboratory test r esult Normal (applies to non-numeric results) [facility] ([facility] Eaton [facility]) Laboratory test finding (navigational concept) Laboratory test r esult Normal (applies to non-numeric results) [facility] ([facility] Eaton [facility]) Laboratory test finding (navigational concept) 1.017 1 .002-1.035 Normal (applies to non-numeric results) [facility] ([facility]ionic[facility] Eaton [facility]) Laboratory test finding (navigational concept) Laboratory test r esult Above high normal [facility] ([facility]ionic[facility] Eaton [facility]) Laboratory test finding (navigational concept) 0.2 mg/dL 0 .0-2.0 Normal (applies to non-numeric results) [facility] ([facility] Eaton [facility]) Laboratory test finding (navigational concept) Laboratory test r esult Normal (applies to non-numeric results) [facility] ([facility] Eaton [facility]) Laboratory test finding (navigational concept) Laboratory test r esult Normal (applies to non-numeric results) [facility] ([facility] Eaton [facility]) Laboratory test finding (navigational concept) Laboratory test r esult Normal (applies to non-numeric results) [facility] (Dionic[facility] Eaton [facility]) Laboratory test finding (navigational concept) Laboratory test r esult Normal (applies to non-numeric results) [facility] ([facility]ionic[facility] Eaton [facility]) Laboratory test finding (navigational concept) Laboratory test r esult Normal (applies to non-numeric results) [facility] ([facility]ionic[facility] Eaton [facility]) Laboratory test finding (navigational concept) Laboratory test r esult Above high normal [facility] (Dionicio Eaton MD) Laboratory test finding (navigational concept) 2 /HPF 0 -3 Normal (applies to non-numeric results) [facility] (Dionic[facility] Eaton [facility]) Laboratory test finding (navigational concept) 1 /HPF 0 -6 Normal (applies to non-numeric results) [facility] (Dionicio Eaton MD) Laboratory test finding (navigational concept) Laboratory test r esult Normal (applies to non-numeric results) [facility] (Dionicio Eaton MD) Laboratory test finding (navigational concept) Laboratory test r esult 0-3 Above high normal [facility] (Dionicio Eaton MD) Laboratory test finding (navigational concept) 0 /LPF 0 -1 Normal (applies to non-numeric results) [facility] (Dionic[facility] Eaton [facility]) ID Date Data Source [id number] 04/01/2020 03:47:00 PM EST [facility] ([facility] Eaton [facility]) Name Value Range Interpretation Code Description Data Aarti rce(s) Supporting Document(s) Laboratory test finding (navigational concept) 4.58 10 4 .00-5.40 Normal (applies to non-numeric results) [facility] ([facility]ionic[facility] Eaton [facility]) Laboratory test finding (navigational concept) 8.3 10 4 .0-10.0 Normal (applies to non-numeric results) [facility] ([facility]ionic[facility] Eaton [facility]) Laboratory test finding (navigational concept) 12.0 g/dL 1 2.0-15.5 Normal (applies to non-numeric results) [facility] ([facility] Eaton [facility]) Laboratory test finding (navigational concept) 39.3 % 3 6.0-47.0 Normal (applies to non-numeric results) [facility] ([facility] Eaton [facility]) Laboratory test finding (navigational concept) 85.8 fl 8 0.0-96.0 Normal (applies to non-numeric results) [facility] ([facility]ionic[facility] Eaton [facility]) Laboratory test finding (navigational concept) 26.2 pg 2 7.0-33.0 Below low normal [facility] ([facility]ionic[facility] Eaton [facility]) Laboratory test finding (navigational concept) 30.5 g/dL 3 2.0-36.5 Below low normal [facility] (Dionicio Eaton [facility]) Laboratory test finding (navigational concept) 202 10 1 50-450 Normal (applies to non-numeric results) [facility] ([facility] Eaton [facility]) Laboratory test finding (navigational concept) 17.9 % 1 1.5-14.5 Above high normal [facility] ([facility]ionic[facility] Eaton [facility]) Laboratory test finding (navigational concept) 67.9 % 3 6.0-66.0 Above high normal [facility] ([facility]ionic[facility] Eaton [facility]) Laboratory test finding (navigational concept) 22.8 % 2 4.0-44.0 Below low normal [facility] ([facility]ionic[facility] Eaton [facility]) Laboratory test finding (navigational concept) 7.3 % 2 .0-8.0 Normal (applies to non-numeric results) [facility] ([facility] Eaton [facility]) Laboratory test finding (navigational concept) 1.3 % 0 -3.0 Normal (applies to non-numeric results) [facility] ([facility]) Laboratory test finding (navigational concept) 0.6 % 0 .0-1.0 Normal (applies to non-numeric results) [facility] ([facility]) Laboratory test finding (navigational concept) 0.1 % 0 .0-3.0 Normal (applies to non-numeric results) [facility] ([facility]) Laboratory test finding (navigational concept) 0.0 % 0 -0 Normal (applies to non- numeric results) [facility] ([facility]) Laboratory test finding (navigational concept) 1.9 10 1 .5-5.0 Normal (applies to non-numeric results) [facility] ([facility]) Laboratory test finding (navigational concept) 5.6 10 1 .5-8.5 Normal (applies to non-numeric results) [facility] ([facility]ionic[facility] Eaton [facility]) Laboratory test finding (navigational concept) 0.0 10 0 .0-0.5 Normal (applies to non-numeric results) [facility] ([facility]ionic[facility] Eaton [facility]) Laboratory test finding (navigational concept) 0.6 10 0 .0-0.8 Normal (applies to non-numeric results) [facility] ([facility]) Laboratory test finding (navigational concept) 0.1 10 0 .0-0.2 Normal (applies to non-numeric results) [facility] (Dionicio Eaton [facility]) ID Date Data Source URINE CULTURE 02/08/2020 12:00:00 AM EST eCW1 ([facility]) Name Value Range Interpretation Code Description Data Aarti rce(s) Supporting Document(s) URINE CULTURE eCW1 ([facility]) Laboratory studies (set) URINE CULTU RE eCW1 ([facility]) ID Date Data Source UA URINALYSIS 02/08/2020 12:00:00 AM EST eCW1 ([facility]) Name Value Range Interpretation Code Description Data Aarti rce(s) Supporting Document(s) Laboratory studies (set) UA URINALYS IS eCW1 ([facility]) ID Date Data Source [id number] 10/28/2019 12:49:09 PM EDT [facility] PC[facility]: [place] Cross: 1965Provider: Nereyda Khan: 10/26/2019 History of Present IllnessCHIEF COMPLAINTNeck pain as well as arm pain and numbness.HISTORY OF PRESENT ILLNESSThe patient is a 54-year-old female who presents for an initial evaluation regarding the cervical spine. She complains of neck pain as well as numbness of her arms after she underwent carpal tunnel surgery in [place]. She also has pain in her bilateral arms. She notes that she has a funny feeling when she wakes up if she sleeps with her pillows not positioned properly. The patient also states that she would have neck pain and difficulty swallowing the next day if she lifts some items. She states she has had a lot of neck injuries over the years. The symptoms have been ongoing for almost 2 years. 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 She has received injections for her headaches but not for her neck. She has not obtained any MRI of her neck.The patient states that she also has IIH and fluid in the ears.The patient is not working. She takes care of her adopted children. Results/DataX-rays with 5 views of the cervical spine including AP, lateral, flexion, and extension were ordered, obtained, and interpreted in the office today. These show some degenerative disc disease at C5-6. AssessmentASSESSMENTCervical degenerative disc disease at C5-6. Plan Start: Ibuprofen 800 MG Oral Tablet; TAKE 1 TABLET 3 TIMES DAILY AFTER MEALS.MDD:3 Rx By: Juvenal Khan; Dispense: 0 Days ; #:90 Tablet; Refill: 1;For: Neck pain; VERONICA = N; Verified Transmission to [employer] [facility]; Last Updated By: Marilee Hanson; 10/26/2019 3:49:23 PM Continue: Diamox TABS (AcetaZOLAMIDE) Dispense: 0 Days ; #: Sufficient; Refill: 0; VERONICA = N; Record; Last Updated By: Mariana Dawson; 10/26/2019 3:18:52 PM Continue: Flexeril TABS (Cyclobenzaprine HCl) Dispense: 0 Days ; #: Sufficient; Refill: 0; VERONICA = N; Record; Last Updated By: Mariana Dawson; 10/26/2019 3:18:52 PM Continue: Lisinopril TABS Dispense: 0 Days ; #: Sufficient; Refill: 0; VERONICA = N; Record; Last Updated By: Mariana Dawson; 10/26/2019 3:18:52 PM Continue: Protonix TBEC (Pantoprazole Sodium) Dispense: 0 Days ; #: Sufficient; Refill: 0; VERONICA = N; Record; Last Updated By: Mariana Dawson; 10/26/2019 3:18:52 PM Continue: Synthroid TABS (Levothyroxine Sodium) Dispense: 0 Days ; #: Sufficient; Refill: 0; VERONICA = N; Record; Last Updated By: Mariana Dawson; 10/26/2019 3:18:52 PM X- Ray I Cervical Spine - 4 views (XRays were ordered, obtained and interpreted today inthe office. Indication: pain/dysfunction.); Status:Complete; Done: [id number] Perform:SOS22; Due:[id number]; Last Updated By:Leah Cunningham; 10/26/2019 3:20:40 PM;Ordered; For:Mid back pain; Ordered By:Juvenal Khan; Physical Therapy (SOS) - Spinal Physical Therapy Evaluation and Treatment Status:Complete Done: [id number] Ordered;For: Neck pain; Ordered By: Juvenal Khan Performed: Due: 09Nov2019; Last Updated By: Elizabeth Dangelo; 10/26/2019 3:47:35 PMSOS Spine Exercises : HEP 3-6 VisitsDuration: : Two WeeksPT Frequency : Two or three times a weekSOS ROM and Strength : Range of motion and strengthening exercises.Heat Ultra and Modalities : Heat Ultrasound and modalities as indicatedEvaluate and Treat: : Please evaluate and treat as indicated. Gabrielle patient presents for evaluation of the cervical spine with symptoms of neck pain and bilateral arm pain and numbness. We reviewed the imaging findings which show some degenerative disc disease at C5-6. I explained to her that she has degeneration at the C5-6 level. We discussed about the diagnosis and treatment options including physical therapy and home exercise program for 2-3 visits. I informed her that she needs to undergo physical therapy prior to a cervical spine MRI due to insurance reasons. We will provide her a prescription for physical therapy. We discussed about surgical intervention and I informed her that surgery is generally for arm pain and numbness and not for neck pain. We also discussed about other treatment measures such as heat, rice bags, and anti-inflammatories. We will give her a prescription for ibuprofen for pain. We will proceed with physical therapy. The patient will follow up with me in 5 weeks through a virtual visit. She may need an MRI of the cervical spine if not improved at that point. The patient understands and agrees with the plan. Scribed by Krysta on 10/27/2019 at 04:28 PM for Juvenal Khan Signatures Electronically signed by : Krysta Quick MA; Oct 27 2019 4:29PM EST (Author) Electronically signed by : Juvenal Khan M.D.; Oct 28 2019 12:49PM EST Name Value Range Interpretation Code Description Data Aarti rce(s) Supporting Document(s) Procedure Social History Code Duration Value Status Description Data Source(s ) Smoking 02/22/2020 12:00:00 AM EST UNK completed eCW1 ([facility]) Smoking 02/22/2020 12:00:00 AM EST UNK completed eCW1 ([facility]) Smoking 02/08/2020 12:00:00 AM EST UNK completed eCW1 ([facility]) Smoking 02/08/2020 12:00:00 AM EST UNK completed eCW1 ([facility]) Smoking 02/02/2020 12:00:00 AM EST Patient has never smoked co mpleted Patient has never smoked [facility] ([facility]) Vital Signs ID Date Data Source UNK Name Value Range Interpretation Code Description Data Source(s) Diastolic blood pressure 64 mm[Hg] 64 mm[Hg] eCW1 ([facility]) Systolic blood pressure 130 mm[Hg] 130 mm[Hg] e CW1 ([facility]) Respiratory rate 18 /min 18 /min eCW1 ([facility]) Heart rate 74 /min 74 /min eCW1 ([facility]) Body mass index (BMI) [Ratio] 46.04 kg/m2 46.04 kg/m2 eCW1 ([facility]) Body height 67 [in_i] 67 [in_i] eCW1 ([facility]) Body weight 294 [lb_av] 294 [lb_av] [facility] Diastolic blood pressure 80 mm[Hg] 80 mm[Hg] eCW1 ([facility]) Systolic blood pressure 124 mm[Hg] 124 mm[Hg] e CW1 ([facility]) Body temperature 96.7 [degF] 96.7 [degF] eCW1 ( [facility]) Respiratory rate 20 /min 20 /min eCW1 ([facility]) Heart rate 72 /min 72 /min eCW1 ([facility]) Body mass index (BMI) [Ratio] 46.36 kg/m2 46.36 kg/m2 eCW1 ([facility]) Body height 67 [in_i] 67 [in_i] eCW1 ([facility]) Body weight 296 [lb_av] 296 [lb_av] eCW1 ([facility]) Body mass index (BMI) [Ratio] 43.1 kg/m2 43.1 k g/m2 [facility] ([facility]) Body height 67 [in_i] 67 [in_i] [facility] ([facility]) 5'7" Body weight 275.00 [lb_av] 275.00 [lb_av] MEDEN T ([facility]) Body temperature 100.2 [degF] 100.2 [degF] MEDE NT ([facility]) Oxygen saturation in Arterial blood by Pulse oximetry 99 % 99 % [facility] ([facility]) Respiratory rate 14 /min 14 /min [facility] ( [facility]) [facility] 73 /min 73 /[facility] Diastolic blood pressure 70 mm[Hg] 70 mm[Hg] MED[facility] ([facility]) Systolic blood pressure 100 mm[Hg] 100 mm[Hg] M EDENT ([facility]) Patient Treatment Plan of Care Planned Activity Planned Date Details Description Data Source (s) Acetaminophen 325 MG / Hydrocodone Bitartrate 5 MG Ora l Tablet [[place]] 02/22/2020 12:00:00 AM EST eCW1 ([facility]) Acetaminophen 325 MG / Hydrocodone Bitartrate 5 MG Ora l Tablet [Gilbert] 02/22/2020 12:00:00 AM EST eCW1 ([facility]) Acetaminophen 325 MG / Oxycodone Hydrochloride 5 MG Or al Tablet [Percocet] 02/08/2020 12:00:00 AM EST eCW1 ([facility]) Acetaminophen 325 MG / Oxycodone Hydrochloride 5 MG Or al Tablet [Percocet] 02/08/2020 12:00:00 AM EST eCW1 ([facility])
[2020-04-07] MEDS ORDERED: MIDAZOLAM INJ 2MG/2ML VIAL (J2250 PER 1MG) As Ordered ONE (10:35)
[2020-04-07] MEDS ORDERED: LIDOCAINE 2% 100MG/5ML SDV (FOR ANES.) As Ordered ONE (10:36)
[2020-04-07] MEDS ORDERED: propofoL 200 MG/20 ML VIAL As Ordered ONE (10:36)
[2020-04-07] MEDS ORDERED: ACETAMINOPHEN 1000MG 100ML IV BTL (OFIRMEV) (J0131 PER 10MG) As Ordered ONE (11:09)
[2020-04-07] MEDS ORDERED: fentaNYL 100 MCG/2 ML INJECTION (J3010) As Ordered ONE (11:26)
[2020-04-07] MEDS ORDERED: dexameTHASONE 4 MG/ML 1ML VIAL (J1100 PER 1MG) As Ordered ONE (11:26)
[2020-04-07] MEDS ORDERED: ONDANSETRON 4MG/2ML VIAL As Ordered ONE (11:26)
[2020-04-07] MEDS ORDERED: ROCURONIUM BROMIDE 50 MG/5 ML VIAL As Ordered ONE ×2 (11:47→12:32)
[2020-04-07] MEDS ORDERED: ePHEDrine SULFATE 25 MG/5 ML(5MG/ML) SYRINGE As Ordered ONE (12:06)
[2020-04-07] MEDS ORDERED: PHENYLephrine 500MCG 5ML (100MCG/ML) SYRINGE As Ordered ONE (12:06)
[2020-04-07] MEDS ORDERED: SUGAMMADEX SODIUM 500 MG/5 ML VIAL (BRIDION) As Ordered ONE (12:10)
[2020-04-07] MEDS ORDERED: METOCLOPRAMIDE INJ 10MG/2ML VIAL (J2765 PER 1) IV PRN (14:15)
[2020-04-07] MEDS ORDERED: oxyCODONE 5MG TAB PO PRN (14:15)
[2020-04-07] MEDS ORDERED: ONDANSETRON 4MG/2ML VIAL IV PRN (14:15)
[2020-04-07] MEDS ORDERED: LR 1,000 ML IV SCH (14:15)
[2020-04-07] MEDS ORDERED: fentaNYL 100 MCG/2 ML INJECTION (J3010) IV PRN (14:15)
[2020-04-07] MEDS ORDERED: CIPR-249 PO (14:22)
--- NOTE | 2020-04-07 14:50 | REP ---
INDICATION: CYSTO, STENT BILATERAL. COMPARISON: Comparison study July 16, 2018.. TECHNIQUE: Three views. 37 seconds of fluoroscopy time is reported. FINDINGS: A sequence of 3 last image hold fluoroscopically obtained spot radiographs of the abdomen document bilateral ureteral cannulation, contrast injection, and stent placement. IMPRESSION: Procedural imaging. <Electronically signed by Ray Gold > 04/07/20 [id number]
[2020-04-07 15:40] VITALS: BP 155/85
--- NOTE | 2020-04-08 08:21 | RO ---
OPERATIVE NOTE DATE OF OPERATION: 04/07/2020 PREOPERATIVE DIAGNOSIS: Kidney stones. POSTOPERATIVE DIAGNOSIS: Kidney stones. PROCEDURE: Cystoscopy, bilateral ureteroscopy with laser lithotripsy and basket extraction of stones, bilateral retrograde pyelograms with intraop interpretation of images, bilateral ureteral stent placement. SURGEON: Bill Castillo MD BUSINESS PROJECT ANALYST: None. ANESTHESIA: General. OPERATIVE INDICATIONS: This is a 55-year-old female who was found to have obstructing distal left ureteral stones as well as stones in both kidneys. She is brought to the operating room today for treatment. DESCRIPTION OF PROCEDURE: The patient was brought to the operating room and general anesthesia induced. Prophylactic antibiotics were infused. She was placed in dorsal lithotomy position and prepped and draped in usual sterile fashion. A rigid cystoscope was inserted into the urethral meatus and advanced into the bladder. A guidewire was advanced up the left collecting system. I went up the left collecting system with short semi-rigid ureteroscope and in the distal ureter and approximately 2-3 stones each measuring around 6-7 mm in size. The stones were impacted. I utilized a 272 micron laser fiber to fragment these stones. Ultimately I withdrew all the stone fragments from the ureter. Of note, this part of the ureter was very narrow and somewhat scarred. After I was done I advanced a ureteral access sheath into left collecting system. I advanced a flexible ureteroscope up and inside the left kidney it was hydronephrotic. There was a lot of debris. I aspirated urine from the left kidney and sent for culture. Due to the large amount of debris it was difficult to see in the kidney. There were some stones in the lower pole of the kidney that were small. These stones were removed using a basket. After that was done a retrograde pyelogram was performed and was notable for moderate left hydronephrosis with no extravasation. I then withdrew the ureteroscope along with access sheath and no additional stones were seen inside the ureter. I then utilized a guidewire to advance a 7-[place] x 22-32 cm JJ ureteral stone into the left collecting system. The wire was removed and there were adequate curls of the stent in the left renal pelvis and in the bladder. At this point I advanced the guidewire up the right collecting system. I advanced the ureteral access sheath up the right collecting system. I went up the access sheath with the flexible ureteroscope and within the upper pole calyx and approximately 8-9 mm size stone was seen. The stone was fragmented into smaller pieces using the 272 micron laser fiber. All the fragments were removed using a basket. No other stones were seen inside the kidney. A retrograde pyelogram was performed and was notable for mild right hydronephrosis with no extravasation. I withdrew the ureteroscope along with access sheath and no additional stones were seen inside the ureter. I then utilized guidewire to advance the 6-[place] x 22-32 cm JJ ureteral stent up the right collecting system. The wire was removed and there were adequate curls of the stent in right renal pelvis and in the bladder. The bladder was emptied of all fluid and this marked the conclusion of the procedure. The patient was taken out of the dorsal lithotomy position, awakened from anesthesia, transported to the recovery room in stable condition. ESTIMATED BLOOD LOSS: 5 mL. COMPLICATIONS: None. SPECIMEN: Urine from left kidney for culture, kidney stones. PLAN: The patient will follow up in urology clinic in a few weeks for stent removal. PARTH
== END 2020-04-07 15:40 | disposition home or self-care (01) ==
LOC: M SDC 10:25
PROVIDERS: ATTEND Urology
DX: N20.2 Calculus of kidney with calculus of ureter (principal); E03.9 Hypothyroidism, unspecified; I10 Essential (primary) hypertension; G93.2 Benign intracranial hypertension; K21.9 Gastro-esophageal reflux disease without esophagitis; K44.9 Diaphragmatic hernia without obstruction or gangrene; M06.9 Rheumatoid arthritis, unspecified; M50.20 Other cervical disc displacement, unspecified cervical region; R06.02 Shortness of breath; R13.10 Dysphagia, unspecified; Z79.890 Hormone replacement therapy; Z79.899 Other long term (current) drug therapy; Z88.5 Allergy status to narcotic agent; Z88.8 Allergy status to other drugs, medicaments and biological substances
CPT/HCPCS: 52356; 74420; 81025; 82365; 87086; 87205; 88300; C1769; C1887; C1894; C2617; J0131; J0690; J1100; J2250; J2370; J2405; J3010; Q9961

== ENCOUNTER → 2020-08-09 | Outpatient (CLI) | payer BC ==
[~2020-08-09] MED LIST changes: +CIPR-249 PO; -CONRAY-60 60% 50ML VIAL (Q9961) As Ordered ONE; +ERGO500029 PO; -LR 1,000 ML IV ONE; -VITA50005 PO; -ceFAZolin SOD 1 GM in D5W MINI-BAG PLUS 50 ML IV ONE; -ceFAZolin SOD 2 GM in IV 1 EA IV ONE
[2020-08-09 13:51] LABS: BASO # 0.1 10^3/uL (0.0-0.2); BASO % 0.8 % (0.0-1.0); HEMOGLOBIN 13.4 g/dl (12.0-15.5); LYMPH # 2.9 10^3/uL (1.5-5.0); LYMPH % 24.2 % (24.0-44.0); MEAN CORPUSCULAR HGB CONC 30.5 g/dl (32.0-36.5); MEAN CORPUSCULAR VOLUME 82.1 fl (80.0-96.0); MONO % 8.4 % (2.0-8.0); NEUTROPHILS # 7.6 10^3/uL (1.5-8.5); PLATELET COUNT, AUTOMATED 255 10^3/uL (150-450); RED BLOOD COUNT 5.36 10^6/uL (4.00-5.40); WHITE BLOOD COUNT 11.9 10^3/uL (4.0-10.0)
== END ==
LOC: M WUC 12:04
PROVIDERS: ATTEND Physician Assistant
DX: R21 Rash and other nonspecific skin eruption (principal)

== ENCOUNTER → 2021-01-09 | Outpatient (CLI) | payer BC ==
[~2021-01-09] MED LIST changes: -LISI-898 PO; +LISI5TAB11 PO; -MONT10TA10 PO; +MONT10TA97 PO
== END ==
LOC: M PLAIMG 10:41
PROVIDERS: ATTEND Internal Medicine Nephrology
DX: N20.2 Calculus of kidney with calculus of ureter (principal)

== ENCOUNTER → 2021-09-29 | Outpatient (REF) | payer BC ==
[2021-09-29 20:03] LABS: HEMOGLOBIN A1c 5.8 %
== END ==
LOC: M LAB REF 19:22
PROVIDERS: ATTEND Surgery
DX: Z86.39 Personal history of other endocrine, nutritional and metabolic disease (principal); E03.9 Hypothyroidism, unspecified; E66.01 Morbid (severe) obesity due to excess calories

== ENCOUNTER → 2021-10-05 | Outpatient (CLI) | payer BC | LOC: M WHC 09:58 | PROVIDERS: ATTEND Physician Assistant | DX: Z12.31 Encounter for screening mammogram for malignant neoplasm of breast (principal) | CPT/HCPCS: 77066; G0279 ==

== ENCOUNTER → 2021-12-12 | Outpatient (CLI) | payer BC ==
[2021-12-12 19:02] LABS: BASO % 0.5 % (0.0-1.0); HEMATOCRIT 39.5 % (36.0-47.0); HEMOGLOBIN 11.6 g/dl (12.0-15.5); LYMPH # 1.9 10^3/uL (1.5-5.0); MEAN CORPUSCULAR HEMOGLOBIN 26.3 pg (27.0-33.0); MEAN CORPUSCULAR HGB CONC 29.4 g/dl (32.0-36.5); MEAN CORPUSCULAR VOLUME 89.6 fl (80.0-96.0); MONO # 0.7 10^3/uL (0.0-0.8); MONO % 9.1 % (2.0-8.0); NEUTROPHILS % 64.7 % (36.0-66.0); PLATELET COUNT, AUTOMATED 251 10^3/uL (150-450); RED BLOOD COUNT 4.41 10^6/uL (4.00-5.40); WHITE BLOOD COUNT 7.7 10^3/uL (4.0-10.0)
[2021-12-12 19:03] LABS: HEMATOCRIT 38.7 % (36.0-47.0)
[2021-12-12 19:17] LABS: ALBUMIN 3.8 GM/DL (3.2-5.2); ALT/SGPT 20 U/L (12-78); BILIRUBIN,TOTAL 0.3 MG/DL (0.2-1.0); BLOOD UREA NITROGEN 20 MG/DL (7-18); CALCIUM LEVEL 9.3 MG/DL (8.5-10.1); CARBON DIOXIDE LEVEL 24 MEQ/L (21-32); CHLORIDE LEVEL 109 MEQ/L (98-107); CREATININE FOR GFR 1.33 MG/DL (0.55-1.30); FERRITIN 92 NG/ML (8-252); GLOMERULAR FILTRATION RATE 44.3 (>51); GLUCOSE, FASTING 94 MG/DL (70-100); IRON (FE) 39 UG/DL (50-170); MAGNESIUM LEVEL 2.3 MG/DL (1.8-2.4); PHOSPHORUS LEVEL 3.3 MG/DL (2.5-4.9); SODIUM LEVEL 141 MEQ/L (136-145); TOTAL IRON BINDING CAPACITY 260 UG/DL (250-450); TOTAL PROTEIN 8.1 GM/DL (6.4-8.2)
[2021-12-12 19:41] LABS: HEMOGLOBIN A1c 5.1 %
[2021-12-12 19:49] LABS: VITAMIN B12 LEVEL > 2000 PG/ML (247-911)
== END ==
LOC: M WUC 14:33
PROVIDERS: ATTEND Physician Assistant Surgical
DX: Z98.84 Bariatric surgery status (principal); K91.2 Postsurgical malabsorption, not elsewhere classified; Z86.39 Personal history of other endocrine, nutritional and metabolic disease; E55.9 Vitamin D deficiency, unspecified

== ENCOUNTER → 2022-02-07 | Outpatient (REF) | payer BC ==
[2022-02-07 17:59] LABS: CREATININE, URINE 155.3 MG/DL
[2022-02-07 18:00] LABS: MAU/CREAT RATIO 8.3 MCG/MG (0.0-30.0)
== END ==
LOC: M LAB REF 17:03
PROVIDERS: ATTEND Internal Medicine Nephrology
DX: E11.22 Type 2 diabetes mellitus with diabetic chronic kidney disease (principal)

== ENCOUNTER → 2022-09-18 | Outpatient (REF) | payer BC | LOC: M LAB REF 16:59 | PROVIDERS: ATTEND Internal Medicine Nephrology | DX: N39.0 Urinary tract infection, site not specified (principal) ==

== ENCOUNTER → 2023-02-21 | Outpatient (REF) | payer BC | LOC: M PLALAB 16:46 | PROVIDERS: ATTEND Obstetrics & Gynecology | DX: Z12.4 Encounter for screening for malignant neoplasm of cervix (principal) | CPT/HCPCS: 87624; G0123 ==

== ENCOUNTER → 2023-03-07 | Outpatient (CLI) | payer BC | LOC: M WHC 11:30 | PROVIDERS: ATTEND Obstetrics & Gynecology | DX: N93.9 Abnormal uterine and vaginal bleeding, unspecified (principal) ==

== ENCOUNTER 2023-03-16 20:01 | Inpatient (IN) | payer BC ==
[~2023-03-16] VITALS: Ht 170.2 cm; Wt 74.9 kg
[2023-03-16 21:47] LABS: HEMATOCRIT 40.5 % (36.0-47.0); HEMOGLOBIN 13.4 g/dl (12.0-15.5); MEAN CORPUSCULAR HEMOGLOBIN 29.1 pg (27.0-33.0); MEAN CORPUSCULAR HGB CONC 33.1 g/dl (32.0-36.5); PLATELET COUNT, AUTOMATED 165 10^3/uL (150-450); WHITE BLOOD COUNT 6.1 10^3/uL (4.0-10.0)
[2023-03-16 22:21] LABS: AMPHETAMINES LEVEL URINE NEGATIVE (NEGATIVE); BARBITURATES URINE NEGATIVE (NEGATIVE); BENZODIAZEPINES URINE NEGATIVE (NEGATIVE); CANNABINOIDS URINE NEGATIVE (NEGATIVE); COCAINE METABOLITE URINE NEGATIVE (NEGATIVE); METHADONE URINE NEGATIVE (NEGATIVE); OPIATES URINE NEGATIVE (NEGATIVE); PHENCYCLIDINE URINE NEGATIVE (NEGATIVE)
[2023-03-16 22:23] LABS: ETHYL ALCOHOL (ETHANOL) 0.004 % (0.000-0.010)
[2023-03-16 22:25] LABS: ALBUMIN 3.4 G/DL (3.2-5.2); ALKALINE PHOSPHATASE 76 U/L (46-116); ALT/SGPT < 9 U/L (7.0-40); AST/SGOT 16 U/L (<34); BILIRUBIN,DIRECT 0.1 MG/DL (<0.4); BILIRUBIN,TOTAL 0.4 MG/DL (0.3-1.2); BLOOD UREA NITROGEN 18 MG/DL (9-23); CARBON DIOXIDE LEVEL 22 MMOL/L (20-31); CHLORIDE LEVEL 110 MMOL/L (98-107); GLOMERULAR FILTRATION RATE 49.5 (>51); GLUCOSE, FASTING 109 MG/DL (60-100); POTASSIUM SERUM 3.8 MMOL/L (3.5-5.1); SALICYLATE LEVEL < 3.0 MG/DL (<30); SODIUM LEVEL 139 MMOL/L (136-145); TOTAL PROTEIN 7.4 G/DL (5.7-8.2)
[2023-03-16 22:27] LABS: THYROID STIMULATING HORMONE 1.846 uIU/ML (0.55-4.78)
[2023-03-16] MEDS ORDERED: MOM 30ML SUSPENSION UDC PO PRN (23:20)
[2023-03-16] MEDS ORDERED: IBUPROFEN 400MG TAB PO PRN (23:20)
[2023-03-16] MEDS ORDERED: MAALOX 30 ML SUSP *UDC PO PRN (23:20)
[2023-03-17] MEDS ORDERED: LEVO125T4 PO (00:05)
[2023-03-17] MEDS ORDERED: SUCR1TAB56 PO (00:09)
[2023-03-17] MEDS ORDERED: BUSP10TA PO (00:09)
[2023-03-17] MEDS ORDERED: POTA-226 PO (00:09)
[2023-03-17] MEDS ORDERED: BUPR15TASR PO (00:09)
[2023-03-17] MEDS ORDERED: SERT50TA29 PO (00:09)
[2023-03-17] MEDS ORDERED: HOME MED LIST COMPLETE! XX SCH (00:10)
[2023-03-17 01:31] VITALS: BP 120/73; O2SAT 97
[2023-03-17 06:40] VITALS: BP 136/88; TEMP 98.2; O2SAT 100
[2023-03-17 17:03] VITALS: BP 110/74; TEMP 97.8; O2SAT 100
[2023-03-17] MEDS: diphenhydrAMINE 25MG CAP PO PRN (20:35)
[2023-03-17] MEDS: ARIPiprazole 2 MG TAB PO SCH (20:35)
[2023-03-17] MEDS: busPIRone 10 MG TAB PO SCH (20:35)
[2023-03-17] MEDS: traZODone 50 MG TAB PO PRN (20:35)
[2023-03-18] MEDS: LEVOTHYROXINE 125MCG TABLET (0.125MG) PO SCH (05:42)
[2023-03-18 06:44] VITALS: BP 116/74; TEMP 99; O2SAT 97
[2023-03-18] MEDS: POTASSIUM CITRATE 1080MG (10MEQ) TAB PO SCH (08:32)
[2023-03-18] MEDS: VENLAFAXINE **XR** 75MG CAPSULE PO SCH (08:33)
[2023-03-18] MEDS: SUCRALFATE 1 GM TAB PO SCH ×2 (08:33→16:47)
[2023-03-18] MEDS: buPROPion **XL** TABLET 150MG (WELLBUTRIN XL) PO SCH (08:33)
[2023-03-18] MEDS: MONTELUKAST 10 MG TAB PO SCH (08:35)
[2023-03-18] MEDS ORDERED: ENTER DRUG NAME HERE (PATIENT'S OWN MED) PO SCH (09:00)
[2023-03-18] MEDS ORDERED: SUCRALFATE 1 GM TAB PO SCH (09:00)
[2023-03-18 18:25] VITALS: BP 118/77; TEMP 98.5; O2SAT 99
[2023-03-18] MEDS: atenoloL 25 MG TAB PO SCH (20:09)
[2023-03-19 06:40] VITALS: BP 136/83; TEMP 98.3; O2SAT 97
[2023-03-19] MEDS: INFLUENZA QUADRIVALENT PF VACCINE 0.5ML SYRINGE IM.IMMUN ONE (12:20)
[2023-03-19] MEDS: LevoFLOXacin 250 MG TABLET PO SCH (15:58)
[2023-03-19 18:14] VITALS: BP 115/76; TEMP 97.8
[2023-03-20 06:07] VITALS: BP 136/86; TEMP 97.8; O2SAT 97
[2023-03-20 18:19] VITALS: BP 117/79; TEMP 97.6
[2023-03-20] MEDS: ACETAMINOPHEN TAB 650MG DOSE (2X325MG) PO PRN (20:50)
[2023-03-21 06:22] VITALS: BP 131/80; TEMP 98; O2SAT 100
[2023-03-21 17:29] VITALS: BP 130/82; TEMP 97.4
[2023-03-22 06:35] VITALS: BP 136/83; TEMP 98.8; O2SAT 98
[2023-03-22] MEDS ORDERED: buPROPion **XL** TABLET 150MG (WELLBUTRIN XL) PO ONE (09:00)
[2023-03-22] MEDS: risperiDONE 1 MG TAB PO SCH (10:56)
[2023-03-22] MEDS: FOSFOMYCIN TROMETHAMINE 3 GM POWDER PACKET (MONUROL) PO ONE (10:57)
[2023-03-22 16:23] VITALS: BP 130/78; TEMP 97.8; O2SAT 98
[2023-03-23 07:01] VITALS: BP 142/84; TEMP 98.6; O2SAT 97
[2023-03-23] MEDS: buPROPion **XL** TABLET 150MG (WELLBUTRIN XL) PO SCH (08:12)
[2023-03-23] MEDS: VENLAFAXINE **XR** 37.5 MG CAPSULE PO SCH (08:13)
[2023-03-23] MEDS ORDERED: buPROPion **XL** TABLET 150MG (WELLBUTRIN XL) PO SCH (09:00)
[2023-03-23 12:13] LABS: BASO % 0.5 % (0.0-1.0); HEMATOCRIT 39.4 % (36.0-47.0); HEMOGLOBIN 13.2 g/dl (12.0-15.5); LYMPH # 2.5 10^3/uL (1.5-5.0); LYMPH % 32.3 % (24.0-44.0); MEAN CORPUSCULAR HEMOGLOBIN 29.1 pg (27.0-33.0); MEAN CORPUSCULAR HGB CONC 33.5 g/dl (32.0-36.5); MONO # 0.6 10^3/uL (0.0-0.8); MONO % 7.7 % (2.0-8.0); NEUTROPHILS # 4.6 10^3/uL (1.5-8.5); NEUTROPHILS % 59.1 % (36.0-66.0); PLATELET COUNT, AUTOMATED 201 10^3/uL (150-450); RED BLOOD COUNT 4.53 10^6/uL (4.00-5.40); WHITE BLOOD COUNT 7.8 10^3/uL (4.0-10.0)
[2023-03-23 12:26] LABS: ERYTHROCYTE SEDIMENTATION RATE 12 mm/hr (0-30)
[2023-03-23 12:37] LABS: C REACTIVE PROTEIN QUANTITATIV < 0.40 MG/DL (<1.0)
[2023-03-23 12:39] LABS: ALBUMIN 3.4 G/DL (3.2-5.2); ALKALINE PHOSPHATASE 62 U/L (46-116); ALT/SGPT < 9 U/L (7.0-40); AST/SGOT 13 U/L (<34); BILIRUBIN,TOTAL 0.3 MG/DL (0.3-1.2); BLOOD UREA NITROGEN 20 MG/DL (9-23); CALCIUM LEVEL 8.9 MG/DL (8.5-10.1); CARBON DIOXIDE LEVEL 30 MMOL/L (20-31); CHLORIDE LEVEL 105 MMOL/L (98-107); GLOMERULAR FILTRATION RATE > 60.0 (>51); GLUCOSE, FASTING 84 MG/DL (60-100); POTASSIUM SERUM 4.2 MMOL/L (3.5-5.1); SODIUM LEVEL 139 MMOL/L (136-145); TOTAL PROTEIN 6.7 G/DL (5.7-8.2)
[2023-03-23 12:50] LABS: PROCALCITONIN <0.04 ng/ml
[2023-03-23 16:35] VITALS: BP 114/68; TEMP 98.3; O2SAT 97
[2023-03-24 06:33] VITALS: BP 138/91; TEMP 98.5; O2SAT 97
[2023-03-24] MEDS ORDERED: ISOVUE-370 76% 100ML VIAL As Ordered ONE (11:01)
[2023-03-24 12:06] LABS: CK-MB VALUE MASS 4.4 NG/ML (<3.6)
[2023-03-24 12:07] LABS: MB/CK RELATIVE INDEX 8.97 (< OR =4)
[2023-03-24 12:43] LABS: CK-MB VALUE MASS 4.7 NG/ML (<3.6)
[2023-03-24 12:45] LABS: MB/CK RELATIVE INDEX 9.03 (< OR =4)
[2023-03-24 15:33] VITALS: BP 133/88; TEMP 98; O2SAT 94
[2023-03-25 06:35] VITALS: BP 140/87; TEMP 98.8; O2SAT 97
[2023-03-25] MEDS ORDERED: acetaZOLAMIDE 250MG TAB PO SCH (09:00)
[2023-03-25 11:38] LABS: BLOOD UREA NITROGEN 18 MG/DL (9-23); CARBON DIOXIDE LEVEL 32 MMOL/L (20-31); CHLORIDE LEVEL 105 MMOL/L (98-107); CREATININE FOR GFR 0.93 MG/DL (0.55-1.30); GLOMERULAR FILTRATION RATE > 60.0 (>51); GLUCOSE, FASTING 92 MG/DL (60-100); POTASSIUM SERUM 4.1 MMOL/L (3.5-5.1); SODIUM LEVEL 141 MMOL/L (136-145)
[2023-03-25] MEDS ORDERED: PROHANCE 279.3MG/ML 15ML VIAL As Ordered ONE (12:23)
[2023-03-25] MEDS: acetaZOLAMIDE 500MG ER CAP PO SCH (15:19)
[2023-03-25] MEDS: hydrOXYzine 50 MG TAB PO PRN (17:21)
[2023-03-25 18:27] VITALS: BP 136/91; TEMP 98.7; O2SAT 99
[2023-03-25 21:52] VITALS: BP 125/81
[2023-03-26 06:12] VITALS: BP 110/73; TEMP 98.2; O2SAT 98
[2023-03-26] MEDS: PERCOCET 5MG/325MG TAB PO PRN (07:26)
[2023-03-26 07:27] VITALS: BP 116/72; TEMP 97.9; O2SAT 96
[2023-03-26 18:40] VITALS: BP 118/80; TEMP 97; O2SAT 98
[2023-03-26 21:53] VITALS: BP 102/64
[2023-03-27 06:48] VITALS: BP 118/78; TEMP 97.3; O2SAT 97
[2023-03-27 18:27] VITALS: BP 102/67; TEMP 97.8; O2SAT 97
[2023-03-28 06:33] VITALS: BP 110/67; TEMP 97.7; O2SAT 96
[2023-03-28 18:03] VITALS: BP 93/61; TEMP 97.5; O2SAT 99
[2023-03-28 22:12] VITALS: BP 111/62
[2023-03-28 22:14] VITALS: BP 111/62
[2023-03-29 06:33] VITALS: BP 111/76; TEMP 97.8; O2SAT 99
[2023-03-29] MEDS ORDERED: HYDR50TA70 PO (09:37)
[2023-03-29] MEDS ORDERED: TRAZ-252 PO (09:37)
[2023-03-29] MEDS ORDERED: VENL37.598 PO (09:37)
[2023-03-29] MEDS ORDERED: BUPR150T12 PO ×2 (09:37→09:56)
[2023-03-29] MEDS ORDERED: BUSP10TA PO (09:37)
[2023-03-29] MEDS ORDERED: RISP1TAB42 PO (09:37)
[2023-03-29] MEDS ORDERED: ACET50CA PO ×2 (09:37→09:56)
[2023-03-29] MEDS ORDERED: SUCR1TA PO ×2 (09:37→09:56)
[2023-03-29] MEDS ORDERED: VENL75CA2 PO (09:56)
[2023-03-29] MEDS ORDERED: VENL37.52 PO (09:56)
== END 2023-03-29 13:29 | disposition home or self-care (01) | DRG 751 ==
LOC: M ED 20:01 → M ED INP 23:21 → M PSY 03-17 00:32
PROVIDERS: ADMIT Psychiatry & Neurology Psychiatry; ATTEND Student in an Organized Health Care Education/Training Program
DX: F33.3 Major depressive disorder, recurrent, severe with psychotic symptoms (principal); M50.20 Other cervical disc displacement, unspecified cervical region; R45.851 Suicidal ideations; N18.30 Chronic kidney disease, stage 3 unspecified; R13.10 Dysphagia, unspecified; I12.9 Hypertensive chronic kidney disease with stage 1 through stage 4 chronic kidney disease, or unspecified chronic kidney disease; E03.9 Hypothyroidism, unspecified; G93.2 Benign intracranial hypertension; F41.9 Anxiety disorder, unspecified; M06.9 Rheumatoid arthritis, unspecified; K21.9 Gastro-esophageal reflux disease without esophagitis; E55.9 Vitamin D deficiency, unspecified; Z63.5 Disruption of family by separation and divorce; Z79.890 Hormone replacement therapy; Z79.899 Other long term (current) drug therapy; Z88.6 Allergy status to analgesic agent; Z88.5 Allergy status to narcotic agent; Z88.8 Allergy status to other drugs, medicaments and biological substances

== ENCOUNTER → 2023-04-09 | Outpatient (REF) | payer BC ==
[~2023-04-09] MED LIST changes: +BUPR150T12 PO; +BUPR15TASR PO; +BUSP10TA PO; +HYDR50TA70 PO; +LEVO125T4 PO; +POTA-226 PO; +RISP1TAB42 PO; +SERT50TA29 PO; +SUCR1TA PO; +SUCR1TAB56 PO; +TRAZ-252 PO; +VENL37.52 PO; +VENL37.598 PO; +VENL75CA2 PO
[2023-04-09 13:37] LABS: AMORPHOUS SEDIMENT SMALL (NEGATIVE); APPEARANCE, URINE CLOUDY (CLEAR); BACTERIA, URINE AUTO 1+ (NEGATIVE); BILIRUBIN, URINE AUTO NEGATIVE (NEGATIVE); BLOOD, URINE BLOOD NEGATIVE (NEGATIVE); COLOR, URINE YELLOW (YELLOW); GLUCOSE, URINE (UA) AUTO NEGATIVE (NEGATIVE); KETONE, URINE AUTO NEGATIVE (NEGATIVE); LEUKOCYTE ESTERASE, URINE AUTO NEGATIVE (NEGATIVE); NITRITE, URINE AUTO NEGATIVE (NEGATIVE); PROTEIN, URINE AUTO NEGATIVE (NEGATIVE); RBC, URINE AUTO 1 /HPF (0-3); SPECIFIC GRAVITY URINE AUTO 1.018 (1.002-1.035); SQUAMOUS EPITHELIAL CELL UR AU 2 /HPF (0-6); TRIPLE PHOSPHATE CRYSTALS MODERATE; UROBILINOGEN, URINE AUTO 0.2 mg/dL (0.0-2.0); WBC, URINE AUTO 1 /HPF (0-3)
== END ==
LOC: M PLALAB 10:32
PROVIDERS: ATTEND Obstetrics & Gynecology
DX: R30.0 Dysuria (principal)

== ENCOUNTER → 2023-06-26 | Outpatient (REF) | payer OTHER | LOC: M LAB REF 17:03 | PROVIDERS: ATTEND Internal Medicine Nephrology | DX: N39.0 Urinary tract infection, site not specified (principal) ==

== ENCOUNTER → 2023-07-17 | Outpatient (CLI) | payer OTHER ==
[2023-07-17 14:00] LABS: HEMATOCRIT 39.2 % (36.0-47.0); HEMOGLOBIN 12.7 g/dl (12.0-15.5); MEAN CORPUSCULAR HEMOGLOBIN 28.2 pg (27.0-33.0); MEAN CORPUSCULAR HGB CONC 32.4 g/dl (32.0-36.5); MEAN CORPUSCULAR VOLUME 87.1 fl (80.0-96.0); PLATELET COUNT, AUTOMATED 223 10^3/uL (150-450); WHITE BLOOD COUNT 6.8 10^3/uL (4.0-10.0)
[2023-07-17 14:27] LABS: ALBUMIN 3.3 G/DL (3.2-5.2); BILIRUBIN,TOTAL 0.3 MG/DL (0.3-1.2); CALCIUM LEVEL 8.5 MG/DL (8.5-10.1); CHOLESTEROL RISK RATIO 2.5 (<5); CREATININE FOR GFR 1.19 MG/DL (0.55-1.30); HDL CHOLESTEROL 53.1 MG/DL (>40); LDL CHOLESTEROL 65.1 MG/DL (<100); NON-HDL-C 79.9 MG/DL; POTASSIUM SERUM 3.5 MMOL/L (3.5-5.1); TOTAL PROTEIN 7.1 G/DL (5.7-8.2)
[2023-07-17 14:28] LABS: FREE T4 0.89 NG/DL (0.89-1.76); THYROID STIMULATING HORMONE 0.192 uIU/ML (0.55-4.78); TOTAL 25(OH) VITAMIN D 45.2 NG/ML (20.0-100.0)
== END ==
LOC: M WUC 09:20
PROVIDERS: ATTEND Nurse Practitioner Adult Health
DX: Z01.811 Encounter for preprocedural respiratory examination (principal); Z01.818 Encounter for other preprocedural examination; Z01.812 Encounter for preprocedural laboratory examination

== ENCOUNTER 2023-08-02 11:35 | Day surgery (SDC) | payer OTHER ==
[~2023-08-02] VITALS: Ht 170.2 cm; Wt 77.1 kg
[~2023-08-02 11:35] MED LIST changes: +ACET500C10 PO; +OMEP40CA5 PO; +POTA10808 PO; +RISP-105 PO; +TRAZ1TAB11 PO; +VENL75CA47 PO
[2023-08-02] MEDS ORDERED: LR 1,000 ML IV SCH (11:50)
[2023-08-02] MEDS ORDERED: fentaNYL 100 MCG/2 ML INJECTION As Ordered ONE (12:03)
[2023-08-02] MEDS ORDERED: MIDAZOLAM INJ 2MG/2ML VIAL As Ordered ONE (12:03)
[2023-08-02] MEDS ORDERED: ONDANSETRON 4MG 2ML VIAL As Ordered ONE (12:04)
[2023-08-02] MEDS ORDERED: propofoL 200 MG/20 ML VIAL As Ordered ONE (12:04)
[2023-08-02] MEDS ORDERED: KETOROLAC 60MG 2ML VIAL As Ordered ONE (12:04)
[2023-08-02] MEDS ORDERED: LIDOCAINE 2% 100MG/5ML SDV (FOR ANES.) As Ordered ONE (12:04)
[2023-08-02 15:05] VITALS: BP 147/89; TEMP 97.2; O2SAT 97
== END 2023-08-02 15:20 | disposition home or self-care (01) ==
LOC: M SDC 11:35
PROVIDERS: ATTEND Obstetrics & Gynecology
DX: D25.0 Submucous leiomyoma of uterus (principal); N93.9 Abnormal uterine and vaginal bleeding, unspecified; I12.9 Hypertensive chronic kidney disease with stage 1 through stage 4 chronic kidney disease, or unspecified chronic kidney disease; N18.30 Chronic kidney disease, stage 3 unspecified; E03.9 Hypothyroidism, unspecified; Z79.899 Other long term (current) drug therapy; Z79.890 Hormone replacement therapy; Z98.84 Bariatric surgery status; Z90.49 Acquired absence of other specified parts of digestive tract; Z88.5 Allergy status to narcotic agent; Z88.6 Allergy status to analgesic agent; Z88.8 Allergy status to other drugs, medicaments and biological substances
CPT/HCPCS: 36415; 58561; 81025; 86850; 86900; 86901; 88305; J0665; J1885; J2250; J2405; J3010

== ENCOUNTER → 2024-01-17 | Outpatient (CLI) | payer OTHER ==
[~2024-01-17] MED LIST changes: -POTA10808 PO; +POTA10809 PO
== END ==
LOC: M RAD 11:19
PROVIDERS: ATTEND Nurse Practitioner Adult Health
DX: R10.31 Right lower quadrant pain (principal); Z98.84 Bariatric surgery status; K21.9 Gastro-esophageal reflux disease without esophagitis; K76.0 Fatty (change of) liver, not elsewhere classified

== ENCOUNTER → 2024-03-13 | Outpatient (CLI) | payer OTHER ==
[2024-03-13 17:41] LABS: ALBUMIN 3.5 G/DL (3.2-5.2); BILIRUBIN,TOTAL 0.3 MG/DL (0.3-1.2); CALCIUM LEVEL 8.4 MG/DL (8.5-10.1); CHOLESTEROL RISK RATIO 3.63 (<5); CREATININE FOR GFR 1.08 MG/DL (0.55-1.30); FREE T4 0.9 NG/DL (0.89-1.76); GLOMERULAR FILTRATION RATE 55.7 (>51); HDL CHOLESTEROL 43.8 MG/DL (>40); LDL CHOLESTEROL 89.8 MG/DL (<100); NON-HDL-C 115.2 MG/DL; POTASSIUM SERUM 3.6 MMOL/L (3.5-5.1); THYROID STIMULATING HORMONE 1.651 uIU/ML (0.55-4.78); TOTAL PROTEIN 7.5 G/DL (5.7-8.2)
[2024-03-13 17:47] LABS: BASO # 0.1 10^3/uL (0.0-0.2); BASO % 0.7 % (0.0-1.0); HEMATOCRIT 41.4 % (36.0-47.0); HEMOGLOBIN 13.7 g/dl (12.0-15.5); LYMPH # 2.7 10^3/uL (1.5-5.0); LYMPH % 32.9 % (24.0-44.0); MEAN CORPUSCULAR HEMOGLOBIN 27.9 pg (27.0-33.0); MEAN CORPUSCULAR HGB CONC 33.1 g/dl (32.0-36.5); MEAN CORPUSCULAR VOLUME 84.3 fl (80.0-96.0); MONO # 0.5 10^3/uL (0.0-0.8); MONO % 6.3 % (2.0-8.0); NEUTROPHILS # 4.9 10^3/uL (1.5-8.5); NEUTROPHILS % 59.2 % (36.0-66.0); PLATELET COUNT, AUTOMATED 293 10^3/uL (150-450); RED BLOOD COUNT 4.91 10^6/uL (4.00-5.40); WHITE BLOOD COUNT 8.2 10^3/uL (4.0-10.0)
[2024-03-13 17:56] LABS: HEMOGLOBIN A1c 5.2 % (4.0-6.0)
== END ==
LOC: M WUC 11:34
PROVIDERS: ATTEND Nurse Practitioner Adult Health
DX: E03.9 Hypothyroidism, unspecified (principal); E55.9 Vitamin D deficiency, unspecified; E78.5 Hyperlipidemia, unspecified; R10.31 Right lower quadrant pain; I10 Essential (primary) hypertension; Z79.899 Other long term (current) drug therapy